=== PATIENT | male | born 1975 | race Caucasian/White ===

== ENCOUNTER 2018-05-12 13:48 | Inpatient (IN) | payer MEDICAID, OTHER ==
[2018-05-12 13:55] VITALS: BMI 27.1
--- NOTE | 2018-05-12 15:22 | C.PDOC ---
History Of Present Illness 43 y/o male with no pmx c/o swelling to left hand/thumb area with pus and bleeding since earlier this week. pt states it was small earlier in the week, and got worse after wearing a glove that rubbed on it, and putting aloe vera on it. pt has been taking keflex bid for since 05/08 with no improvement. no fever. Time Seen by Provider: 05/12/18 14:10 Chief Complaint (Nursing): Finger,Hand,&Wrist History Per: Patient History/Exam Limitations: no limitations Onset/Duration Of Symptoms: Days (6) Current Symptoms Are (Timing): Worse Quality: "Pain" Severity: Moderate Past Medical History Reviewed: Historical Data, Nursing Documentation, Vital Signs Vital Signs: Last Vital Signs Temp 98.4 F 05/12/18 13:55 Pulse 70 05/12/18 15:01 Resp 18 05/12/18 15:01 BP 136/86 05/12/18 15:01 Pulse Ox 97 05/12/18 15:01 - Medical History PMH: Kidney Stones, Chronic Kidney Disease Family History: States: Unknown Family Hx, Diabetes - Social History Hx Tobacco Use: No Hx Alcohol Use: Yes Hx Substance Use: No - Immunization History Hx Tetanus Toxoid Vaccination: No Hx Influenza Vaccination: No Hx Pneumococcal Vaccination: No Review Of Systems Constitutional: Negative for: Fever, Chills Cardiovascular: Negative for: Chest Pain Respiratory: Negative for: Cough Gastrointestinal: Negative for: Abdominal Pain Skin: Positive for: Lesions (to left hand) Neurological: Negative for: Weakness, Numbness Physical Exam - Physical Exam Appears: Non-toxic, No Acute Distress Skin: Warm, Dry, Other (6 cm x 2 cm mass extruding from left first metacarpal that is purulent and bloody , lesion with surrounding erythema, warmth, and swelling that extends to dorsum hand and thenar eminence. from of thumb. ) Head: Atraumatic, Normacephalic Extremity: Normal ROM, Tenderness (left hand), Capillary Refill (less than 2 seconds. ), Swelling Neurological/Psych: Oriented x3, Normal Speech, Normal Cognition ED Course And Treatment - Laboratory Results Result Diagrams: 05/12/18 15:51 05/12/18 15:51 O2 Sat by Pulse Oximetry: 97 Medical Decision Making Medical Decision Making: discussed with Dr Borker, will admit to her service for cellulitis. Dr Moreira made aware of consult, requests hand soaked, then wt to dry dressing applied. Disposition - Disposition Disposition: HOSPITALIZED Disposition Time: 17:15 Condition: GOOD - Clinical Impression Clinical Impression: Cellulitis of hand, left
[2018-05-12 15:56] LABS: BASO # 0.1 K/uL (0.0-0.2); BASO % 1.5 % (0.0-2.0); EOS # 0.2 K/uL (0.0-0.7); EOS % 2.3 % (0.0-4.0); HEMOGLOBIN 14.8 g/dL (12.0-18.0); LYMPH # 1.9 K/uL (1.0-4.3); LYMPH % 24.7 % (20.0-40.0); MEAN CELL VOLUME 88.2 fL (80.0-94.0); MEAN CORPUSCULAR HEMOGLOBIN 30.5 pg (27.0-31.0); MEAN CORPUSCULAR HGB CONC 34.6 g/dL (33.0-37.0); MEAN PLATELET VOLUME 7.7 fL (7.2-11.7); MONO # 0.5 K/uL (0.0-0.8); MONO % 6.9 % (0.0-10.0); NEUT # 4.9 K/uL (1.8-7.0); NEUT % 64.6 % (50.0-75.0); RBC 4.84 Mil/uL (4.40-5.90); RED CELL DISTRIBUTION WIDTH 12.6 % (11.5-14.5); WHITE BLOOD COUNT 7.6 K/uL (4.8-10.8)
[2018-05-12 16:00] LABS: URINE BILIRUBIN NEGATIVE (NEGATIVE); URINE BLOOD NEGATIVE (NEGATIVE); URINE CLARITY Clear (Clear); URINE COLOR Straw (YELLOW); URINE GLUCOSE (UA) NORMAL (Normal); URINE LEUKOCYTE ESTERASE NEG Leu/uL (Negative); URINE PROTEIN NEGATIVE (NEGATIVE); URINE UROBILINOGEN NORMAL mg/dL (0.2-1.0)
[2018-05-12] MEDS ORDERED: Clindamycin 600mg/50ml D5W 600 MG/50 ML VIAL IVPB SCH (16:00)
[2018-05-12] MEDS ORDERED: Clindamycin 600mg/50ml NS 600 MG/50 ML BAG IVPB SCH (16:00)
[2018-05-12 16:07] LABS: ALB/GLOB RATIO 1.3 (1.0-2.1); ALBUMIN 4.2 g/dL (3.5-5.0); ALT/SGPT 31 U/L (21-72); AST/SGOT 24 U/L (17-59); BLOOD UREA NITROGEN 14 mg/dL (9-20); CALCIUM 8.8 mg/dl (8.6-10.4); GFR NON-AFRICAN AMERICAN > 60
[2018-05-12 16:59] LABS: INR 1.2; PROTHROMBIN TIME 12.7 SECONDS (9.7-12.2)
[2018-05-12] MEDS ORDERED: Piperacillin/Tazobact 3.375 GM in Sodium Chloride 100 ML IVPB STA (17:05)
[2018-05-12] MEDS ORDERED: Vancomycin 1 gm/NS 200 ml 1 GM/200 ML BAG IVPB STA (17:22)
--- NOTE | 2018-05-12 18:07 | CP.PCM.HP ---
"History of Present Illness - History of Present Illness History of Present Illness: Mr. Garcia is a 43 year old male with a past medical history of nephrolithiasis who presents with complaints left hand/thumb swelling/pain with associated sanguinopurulent drainage. Patient states that his wound began as a bump on the evening of 05/07/18 and worsened. 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 Over the course of his wound he has attempted several modalities to treat his wound including sucking on it, poking wound with pin and trying to open it up, warm salt water, bottled water, and aloe-vera. He eventually went to a clinic and was prescribed Keflex 500 BID, which he has been taking since 05/08. Patient does admit to subjective fever on Monday which resolved with ibuprofen. ROS POSITIVES: As stated above NEGATIVES: Chills, headache, Chest pain, SOB, abdominal pain, nausea, vomiting, diarrhea, constipation, urinary symptoms. PMHx: Nephrolithiasis PSHx: Possible Colonoscopy 7-8 years ago Allergies: NKDA SocialHx: Works as a construction work, smokes Cigars social (hasn't smoked any in 3 months), Social EtOH Use Hos: [facility] FamHx: Father/Mother - HTN, Diabetes Meds: PRN Motrin PMD: None Present on Admission - Present on Admission Any Indicators Present on Admission: No Review of Systems - Review of Systems All systems: reviewed and no additional remarkable complaints except (As per HPI) Review of Systems: As per HPI Past Patient History - Past Social History Smoking Status: Never Smoked - RENAL Hx Chronic Kidney Disease: Yes Hx Kidney Stones: Yes - PSYCHIATRIC Hx Substance Use: No - SURGICAL HISTORY Hx Surgeries: No - ANESTHESIA Hx Anesthesia: No Hx Anesthesia Reactions: No Hx Malignant Hyperthermia: No Meds Allergies/Adverse Reactions: Allergies Allergy/AdvReac Type Severity Reaction Status Date / Time No Known Allergies Allergy Verified 05/12/18 13:53 Physical Exam - Constitutional Appears: Well, Non-toxic, No Acute Distress - Head Exam Head Exam: ATRAUMATIC, NORMAL INSPECTION, NORMOCEPHALIC - Eye Exam Eye Exam: EOMI, Normal appearance. absent: Scleral icterus - ENT Exam ENT Exam: Mucous Membranes Moist - Neck Exam Neck exam: Positive for: Normal Inspection. Negative for: Lymphadenopathy - Respiratory Exam Respiratory Exam: Clear to Auscultation Bilateral, NORMAL BREATHING PATTERN. absent: Rales, Rhonchi, Wheezes - Cardiovascular Exam Cardiovascular Exam: RRR, +S1, +S2 - GI/Abdominal Exam GI & Abdominal Exam: Normal Bowel Sounds, Soft. absent: Tenderness - Extremities Exam Extremities exam: Positive for: normal capillary refill, pedal pulses present. Negative for: pedal edema Additional comments: Left Hand/Thumb. Swollen, Erythematous with sanguinopurulent drainage. Tender to palpation. Irregular border NO axillary lymphadenopathy Left axilla with two papular, erythematous masses about .5inch in diameter each. Tender to palpation, fluctuant. - Back Exam Back exam: NORMAL INSPECTION - Neurological Exam Neurological exam: Alert, Oriented x3 - Psychiatric Exam Psychiatric exam: Normal Affect, Normal Mood - Skin Skin Exam: Warm Results - Vital Signs Recent Vital Signs: Last Vital Signs Temp 98.4 F 05/12/18 13:55 Pulse 70 05/12/18 15:01 Resp 18 05/12/18 15:01 BP 136/86 05/12/18 15:01 Pulse Ox 97 05/12/18 15:48 - Labs Result Diagrams: 05/12/18 15:51 05/12/18 15:51 Labs: Laboratory Results - last 24 hr 05/12/18 05/12/18 05/12/18 15:51 15:51 15:51 WBC 7.6 RBC 4.84 Hgb 14.8 Hct 42.7 MCV 88.2 MCH 30.5 MCHC 34.6 RDW 12.6 Plt Count 276 MPV 7.7 Neut % (Auto) 64.6 Lymph % (Auto) 24.7 [place] % (Auto) 6.9 Eos % (Auto) 2.3 Baso % (Auto) 1.5 Neut # (Auto) 4.9 Lymph # (Auto) 1.9 [place] # (Auto) 0.5 Eos # (Auto) 0.2 Baso # (Auto) 0.1 PT INR APTT Sodium 139 Potassium 3.6 Chloride 101 Carbon Dioxide 30 Anion Gap 12 BUN 14 Creatinine 0.8 Est GFR ( Amer) > 60 Est GFR (Non-Af Amer) > 60 Random Glucose 91 Calcium 8.8 Total Bilirubin 0.6 AST 24 ALT 31 Alkaline Phosphatase 99 Total Protein 7.5 Albumin 4.2 Globulin 3.2 Albumin/Globulin Ratio 1.3 Urine Color Straw Urine Clarity Clear Urine pH 6.0 Ur Specific [place] 1.008 Urine Protein Negative Urine Glucose (UA) Normal Urine Ketones Negative Urine Blood Negative Urine Nitrate Negative Urine Bilirubin Negative Urine Urobilinogen Normal Ur Leukocyte Esterase Neg Urine WBC (Auto) 1 Urine RBC (Auto) 1 05/12/18 16:43 WBC RBC Hgb Hct MCV MCH MCHC RDW Plt Count MPV Neut % (Auto) Lymph % (Auto) [place] % (Auto) Eos % (Auto) Baso % (Auto) Neut # (Auto) Lymph # (Auto) [place] # (Auto) Eos # (Auto) Baso # (Auto) PT 12.7 H INR 1.2 APTT 33 Sodium Potassium Chloride Carbon Dioxide Anion Gap BUN Creatinine Est GFR ( Amer) Est GFR (Non-Af Amer) Random Glucose Calcium Total Bilirubin AST ALT Alkaline Phosphatase Total Protein Albumin Globulin Albumin/Globulin Ratio Urine Color Urine Clarity Urine pH Ur Specific [place] Urine Protein Urine Glucose (UA) Urine Ketones Urine Blood Urine Nitrate Urine Bilirubin Urine Urobilinogen Ur Leukocyte Esterase Urine WBC (Auto) Urine RBC (Auto) Assessment & Plan - Assessment and Plan (Free Text) Assessment: 43 year old male with PMHx of nephrolithiasis admitted for evaluation and treatment of left hand/thumb cellulitis. Plan: Left Hand/Thumb Cellulitis No fever/Leukocytosis Left Hand X-ray (Admission): PENDING read Left Hand CT (05/12/18): PENDING Hand Surgery Consulted (Dr. Persaud) ID Consulted (Dr. Bello) ED: Clindamycin, Zosyn, Vancomycin, -Blood Cultures | Wound Culture -Hemoglobin A1C & HIV 1&2 -NPO Diet incase of surgery -Preoperative CXR and EKG Meds: Vancomycin 1 gram Daily IV Zosyn 3.375 Q6H IV Tylenol NS @ 125mls/HR Tdap IM ONCE Proph NPO NO pharmocological DVT proph in case of surgery SCD's GI Proph Not Indicated Patient seen and discussed with Attending Lizzie Crooks, PGY-2"
[2018-05-12] MEDS ORDERED: Sodium Chloride 0.9% 1,000 ML IV SCH (18:15)
[2018-05-12] MEDS ORDERED: Tetanus/Diphtheria Toxoids 0.5 ml Syringe IM ONE (18:20)
[2018-05-12] MEDS: Sodium Chloride 0.9% 1,000 ML IV SCH (19:05)
[2018-05-12] MEDS ORDERED: Iohexol 350mg/ml 100 ML ONE (19:24)
[2018-05-12] MEDS: Piperacill/Tazo 3.375gm in Dex 3.375 GM/50 ML BAG IVPB SCH (23:05)
[2018-05-13 01:31] VITALS: RESP 20
[2018-05-13] MEDS: Sodium Chloride 0.9% 1,000 ML IV SCH ×3 (03:02→14:36)
[2018-05-13] MEDS: Piperacill/Tazo 3.375gm in Dex 3.375 GM/50 ML BAG IVPB SCH ×4 (04:36→22:22)
[2018-05-13 08:26] LABS: BASO # 0.1 K/uL (0.0-0.2); BASO % 1.2 % (0.0-2.0); EOS # 0.3 K/uL (0.0-0.7); EOS % 3.2 % (0.0-4.0); HEMOGLOBIN 14.5 g/dL (12.0-18.0); LYMPH # 1.8 K/uL (1.0-4.3); LYMPH % 22.1 % (20.0-40.0); MEAN CELL VOLUME 88.7 fL (80.0-94.0); MEAN CORPUSCULAR HEMOGLOBIN 31.1 pg (27.0-31.0); MEAN CORPUSCULAR HGB CONC 35.1 g/dL (33.0-37.0); MEAN PLATELET VOLUME 8.1 fL (7.2-11.7); MONO # 0.6 K/uL (0.0-0.8); MONO % 7.3 % (0.0-10.0); NEUT # 5.3 K/uL (1.8-7.0); NEUT % 66.2 % (50.0-75.0); RBC 4.66 Mil/uL (4.40-5.90); RED CELL DISTRIBUTION WIDTH 12.6 % (11.5-14.5)
[2018-05-13 08:40] LABS: ALB/GLOB RATIO 1.2 (1.0-2.1); ALBUMIN 3.7 g/dL (3.5-5.0); ALT/SGPT 28 U/L (21-72); AST/SGOT 23 U/L (17-59); BLOOD UREA NITROGEN 14 mg/dL (9-20); CALCIUM 8.7 mg/dl (8.6-10.4); GFR NON-AFRICAN AMERICAN > 60
[2018-05-13] MEDS ORDERED: Pneumococcal 23-Valent Vaccine IM ONE (10:00)
[2018-05-13] MEDS: Vancomycin 1 gm/NS 200 ml 1 GM/200 ML BAG IVPB SCH (10:45)
--- NOTE | 2018-05-13 11:44 | CT ---
Date of service: 05/12/2018 PROCEDURE: CT of the left hand HISTORY: Left Hand Cellulitis COMPARISON: None available. TECHNIQUE: Contiguous axial images of the le left hand hip were obtained following intravenous injection of approximately 100 cc Visipaque 320. Coronal and sagittal reformats were generated. Radiation dose: Total exam DLP = 279.11 mGy-cm. This CT exam was performed using one or more of the following dose reduction techniques: Automated exposure control, adjustment of the mA and/or kV according to patient size, and/or use of iterative reconstruction technique. FINDINGS: BONES: The current study reveals no evidence of acute displaced fracture nor dislocation. The osseous structures appear intact. No obvious cortical destructive changes seen at this time to suggest osteomyelitis however consider follow-up MRI if early osteomyelitis suspected clinically as this cannot be completely excluded based on the current study. No evidence of significant osteoarthritis. SOFT TISSUES: There is a long somewhat rectangular/elliptical shaped hypodense fluid collection within the lateral (radial aspect) soft tissues of the left hand extending from the distal aspect of the 1st metacarpal proximally to the level of the triquetrum. This collection measures approximately 3.8 x 1.39 x 0.74 cm. Collection extends to the lateral volar skin surface with possible draining site best seen on axial series 3 image number 128 through 132. There is surrounding infiltration changes in the adjacent subcutaneous tissues and musculature consistent with cellulitis.. No evidence of subcutaneous emphysema IMPRESSION: Findings are consistent with a small elliptical shaped abscess collection with surrounding is infiltration changes consistent with cellulitis in the soft tissues of the lateral hand (radial aspect) at the level of the 1st metacarpal extending from distal metacarpal proximally to the level of the triquetrum.. No evidence of subcutaneous emphysema. No definitive bony destructive changes suggest osteomyelitis at this time however early osteomyelitis not excluded. Follow-up MRI may be prudent for further evaluation These findings are concordant with preliminary radiology reading.
--- NOTE | 2018-05-13 13:46 | RAD ---
Date of service: 05/12/2018 HISTORY: Pre-Op COMPARISON: No prior TECHNIQUE: Chest PA and lateral FINDINGS: LUNGS: Poor inspiration with low lung volumes, crowded bronchovascular markings and mild bibasilar atelectasis. PLEURA: No significant pleural effusion identified. No pneumothorax apparent. CARDIOVASCULAR: No aortic atherosclerotic calcification present. Normal cardiac size. No pulmonary vascular congestion. OSSEOUS STRUCTURES: No significant abnormalities. VISUALIZED UPPER ABDOMEN: Normal. OTHER FINDINGS: None. IMPRESSION: Poor inspiration with low lung volumes, crowded bronchovascular markings and mild bibasilar atelectasis. .
--- NOTE | 2018-05-13 13:58 | CP.PCM.PN ---
<Lizzie Crooks - Last Filed: 05/13/18 13:50> Subjective - Date & Time of Evaluation Date of Evaluation: 05/13/18 Time of Evaluation: 10:40 - Subjective Subjective: Patient seen and examined at bedside. No overnight events reported. Patient denies any fever, chills, chest pain, SOB, abdominal pain, n/v/d, constipation, or any urinary symptoms. Hand pain has decreased. Objective - Vital Signs/Intake and Output Vital Signs (last 24 hours): Temp Pulse Resp BP Pulse Ox 98.9 F 58 L 20 117/77 95 05/13/18 08:00 05/13/18 08:00 05/13/18 08:00 05/13/18 08:00 05/13/18 08:00 Intake and Output: 05/13/18 05/13/18 06:59 18:59 Intake Total 1000 Balance 1000 - Medications Medications: Current Medications Acetaminophen (Tylenol 325mg Tab) 650 mg PO Q6 PRN PRN Reason: Pain or Fever Vancomycin/Sodium Chloride (Vancomycin 1 Gm/Ns 200 Ml) 1 gm in 200 mls @ 166.7 mls/hr IVPB Q24H GILBERTO; Protocol Stop: 05/18/18 10:01 Last Admin: 05/13/18 10:45 Dose: 166.7 mls/hr Piperacillin Sod/Tazobactam Sod (Zosyn 3.375 Gm Iv Premix) 3.375 gm in 50 mls @ 100 mls/hr IVPB Q6H GILBERTO; Protocol Last Admin: 05/13/18 10:46 Dose: 100 mls/hr Sodium Chloride (Sodium Chloride 0.9%) 1,000 mls @ 125 mls/hr IV .Q8H GILBERTO Last Admin: 05/13/18 03:02 Dose: 125 mls/hr - Labs Labs: 05/13/18 08:17 05/13/18 08:17 PT 12.7 SECONDS (9.7-12.2) H 05/12/18 16:43 INR 1.2 05/12/18 16:43 APTT 33 SECONDS (21-34) 05/12/18 16:43 - Additional Findings Additional findings: - Constitutional Appears: Well, Non-toxic, No Acute Distress - Head Exam Head Exam: ATRAUMATIC, NORMAL INSPECTION, NORMOCEPHALIC - Eye Exam Eye Exam: EOMI, Normal appearance. absent: Scleral icterus - ENT Exam ENT Exam: Mucous Membranes Moist - Neck Exam Neck exam: Positive for: Normal Inspection. Negative for: Lymphadenopathy - Respiratory Exam Respiratory Exam: Clear to Auscultation Bilateral, NORMAL BREATHING PATTERN. absent: Rales, Rhonchi, Wheezes - Cardiovascular Exam Cardiovascular Exam: RRR, +S1, +S2 - GI/Abdominal Exam GI & Abdominal Exam: Normal Bowel Sounds, Soft. absent: Tenderness - Extremities Exam Extremities exam: Positive for: normal capillary refill, pedal pulses present. Negative for: pedal edema Additional comments: Left Hand/Thumb. Swollen, Erythematous with sanguinopurulent drainage. Tender to palpation. Irregular border NO axillary lymphadenopathy Left axilla with two papular, erythematous masses about .5inch in diameter each. Tender to palpation, fluctuant. - Back Exam Back exam: NORMAL INSPECTION - Neurological Exam Neurological exam: Alert, Oriented x3 - Psychiatric Exam Psychiatric exam: Normal Affect, Normal Mood - Skin Skin Exam: Warm Assessment and Plan - Assessment and Plan (Free Text) Assessment: 43 year old male with PMHx of nephrolithiasis admitted for evaluation and treatment of left hand/thumb cellulitis. Plan: Left Hand/Thumb Cellulitis No fever/Leukocytosis Left Hand X-ray (Admission): PENDING Official Read, No fractures, dislocations, or evidence of osteomyelitis noted. Left Hand CT (05/12/18): Findings are consistent with a small elliptical shaped abscess collection with surrounding is infiltration changes consistent with cellulitis in the soft tissues of the lateral hand (radial aspect) at the level of the 1st metacarpal extending from distal metacarpal proximally to the level of the triquetrum.. No evidence of subcutaneous emphysema. No definitive bony destructive changes suggest osteomyelitis at this time however early osteomyelitis not excluded. Follow-up MRI may be prudent for further evaluation Hand Surgery Consulted (Dr. Persaud), F/U. ---Wet to Dry Dressing ID Consulted (Dr. Bello), F/U ED: Clindamycin, Zosyn, Vancomycin, Wound Culture (05/12/18): POSITIVE for Gram (+) Gocci Blood Cultures: PENDING Meds: Vancomycin 1 gram Daily IV Zosyn 3.375 Q6H IV Tylenol NS @ 75mls/HR Tdap IM Given Once Proph NO pharmocological DVT proph in case of surgery SCD's GI Proph Not Indicated <Bashir Bautista - Last Filed: 05/13/18 14:35> Objective - Vital Signs/Intake and Output Vital Signs (last 24 hours): Temp Pulse Resp BP Pulse Ox 98.9 F 58 L 20 117/77 95 05/13/18 08:00 05/13/18 08:00 05/13/18 08:00 05/13/18 08:00 05/13/18 08:00 Intake and Output: 05/13/18 05/13/18 06:59 18:59 Intake Total 1000 Balance 1000 - Medications Medications: Current Medications Acetaminophen (Tylenol 325mg Tab) 650 mg PO Q6 PRN PRN Reason: Pain or Fever Vancomycin/Sodium Chloride (Vancomycin 1 Gm/Ns 200 Ml) 1 gm in 200 mls @ 166.7 mls/hr IVPB Q24H GILBERTO; Protocol Stop: 05/18/18 10:01 Last Admin: 05/13/18 10:45 Dose: 166.7 mls/hr Piperacillin Sod/Tazobactam Sod (Zosyn 3.375 Gm Iv Premix) 3.375 gm in 50 mls @ 100 mls/hr IVPB Q6H GILBERTO; Protocol Last Admin: 05/13/18 10:46 Dose: 100 mls/hr Sodium Chloride (Sodium Chloride 0.9%) 1,000 mls @ 75 mls/hr IV .[id number] GILBERTO - Labs Labs: 05/13/18 08:17 05/13/18 08:17 PT 12.7 SECONDS (9.7-12.2) H 05/12/18 16:43 INR 1.2 05/12/18 16:43 APTT 33 SECONDS (21-34) 05/12/18 16:43 Attending/Attestation - Attestation I have personally seen and examined this patient.: Yes I have fully participated in the care of the patient.: Yes I have reviewed all pertinent clinical information, including history, physical exam and plan: Yes Notes (Text): Patient seen and examined, agree with above improved pain, continue with supportive care and broad spectrum Abx until blood cx reports available will likely need I&D
--- NOTE | 2018-05-13 14:28 | RAD ---
PROCEDURE: Left Hand Radiographs. HISTORY: mass on thumb COMPARISON: None. FINDINGS: BONES: No evidence of acute displaced fracture nor dislocation. Osseous structures appear intact. No definitive cortical destructive changes.. JOINTS: Normal. No osteoarthritic changes. SOFT TISSUES: There is localized enlarged heterogeneous appearance of the soft tissues adjacent to the radial margin of the 1st metacarpal (with presumed involvement of the thenar eminence) and extending to the level of the triquetrum. Findings may represent a cellulitis and possible abscess. Follow-up additional imaging such as CT scan with contrast recommended. OTHER FINDINGS: None. IMPRESSION: There is localized enlarged heterogeneous appearance of the soft tissues adjacent to the radial margin of the 1st metacarpal (with presumed involvement of the thenar eminence) and extending to the level of the triquetrum. Findings may represent a cellulitis and possible abscess. Follow-up additional imaging such as CT scan with contrast recommended.
--- NOTE | 2018-05-13 17:35 | CP.PCM.CON ---
History of Present Illness - History of Present Illness History of Present Illness: 43 year old male presents with complaints left hand/thumb swelling/pain Says his wound began as a bump on the evening of 05/07/18 and worsened. He eventually went to a clinic and was prescribed Keflex 500 BID, which he has been taking since 05/08. Pain and swelling persisted PMHx: Nephrolithiasis PSHx: Possible Colonoscopy 7-8 years ago Allergies: NKDA SocialHx: Works as a construction work, smokes Cigars social (hasn't smoked any in 3 months), Social EtOH Use FamHx: Father/Mother - HTN, Diabetes Review of Systems - Review of Systems All systems: reviewed and no additional remarkable complaints except - Constitutional Constitutional: As Per HPI - EENT Eyes: absent: As Per HPI, Blind Spots, Blurred Vision, Change in Vision, Decreased Night Vision, Diplopia, Discharge, Dry Eye, Exophthalmos, Floaters, Irritation, Itchy Eyes, Loss of Peripheral Vision, Pain, Photophobia, Requires Corrective Lenses, Sees Flashes, Spots in Vision, Tunnel Vision, Other Visual Disturbances, Loss of Vision, Other Ears: absent: As Per HPI, Decreased Hearing, Ear Discharge, Ear Pain, Tinnitus, Abnormal Hearing, Disequilibrium, Dizziness, Other Nose/Mouth/Throat: absent: As Per HPI, Epistaxis, Nasal Congestion, Nasal Discharge, Nasal Obstruction, Nasal Trauma, Nose Pain, Post Nasal Drip, Sinus Pain, Sinus Pressure, Bleeding Gums, Change in Voice, Dental Pain, Dry Mouth, Dysphagia, Halitosis, Hoarsness, Lip Swelling, Mouth Lesions, Mouth Pain, Odynophagia, Sore Throat, Throat Swelling, Tongue Swelling, Facial Pain, Neck Pain, Neck Mass, Other - Cardiovascular Cardiovascular: absent: As Per HPI, Acrocyanosis, Chest Pain, Chest Pain at Rest, Chest Pain with Activity, Claudication, Diaphoresis, Dyspnea, Dyspnea on Exertion, Edema, Irregular Heart Rhythm, Pain Radiating to Arm/Neck/Jaw, Leg Edema, Leg Ulcers, Lightheadedness, Orthopnea, Palpitations, Paroxysmal Noctur nal Dyspnea, Pedal Edema, Radiating Pain, Rapid Heart Rate, Slow Heart Rate, Syncope, Other - Respiratory Respiratory: absent: As Per HPI, Cough, Dyspnea, Hemoptysis, Dyspnea on Exertion, Wheezing, Snoring, Stridor, Pain on Inspiration, Chest Congestion, Excessive Mucous Production, Change in Mucous Color, Pain with Coughing, Other - Gastrointestinal Gastrointestinal: absent: As Per HPI, Abdominal Pain, Belching, Bloating, Change in Bowel Habits, Change in Stool Character, Coffee Ground Emesis, Constipation, Cramping, Diarrhea, Dyspepsia, Dysphagia, Early Satiety, Excessive Flatus, Fecal Incontinence, Heartburn, Hematemesis, Hematochezia, Loose Stools, Melena, Nausea, Odynophagia, Temesmus, Vomiting, Other - Genitourinary Genitourinary: absent: As Per HPI, Change in Urinary Stream, Difficulty Urinating, Dysuria, Flank Pain, Hematuria, Pyuria, Nocturia, Urinary Incontinen ce, Urinary Frequency, Urinary Hesitance, Urinary Urgency, Voiding Freq/Small Amts, Freq UTI, Hx Renal/Bladder Calculi, Hx /Renal Surgery, Bladder Distension, Other - Musculoskeletal Musculoskeletal: As Per HPI - Integumentary Integumentary: As Per HPI, Skin Pain, Wounds - Neurological Neurological: absent: As Per HPI, Abnormal Gait, Abnormal Hearing, Abnormal Movements, Abnormal Speech, Behavioral Changes, Burning Sensations, Confusion, Convulsions, Disequilibrium, Dizziness, Numbness, Focal Weakness, Frequent Falls, Headaches, Lack of Coordination, Loss of Vision, Memory Loss, Paresthesias, Radicular Pain, Restless Legs, Sensory Deficit, Syncope, Tingling, Tremor, Vertigo, Weakness, Other Visual Disturbances, Other - Psychiatric Psychiatric: absent: As Per HPI, Abnormal Sleep Pattern, Anhedonia, Anxiety, Auditory Hallucinations, Behavioral Changes, Change in Appetite, Change in Libido, Confusion, Depression, Difficulty Concentrating, Hallucinations, Homicidal Ideation, Hopelessness, Irritability, Memory Loss, Mood Swings, Panic Attacks, Paranoia, Suicidal Ideation, Visual Hallucinations, Tactile Hallucinations, Other - Endocrine Endocrine: absent: As Per HPI, Change in Body Appearance, Change in Libido, Cold Intolorance, Deepening of Voice, Excessive Sweating, Fatigue, Flushing, Heat Intolorance, Increase in Ring/Shoe/Hat Size, Palpitations, Polydipsia, Polyphagia, Polyuria, Other - Hematologic/Lymphatic Hematologic: absent: As Per HPI, Easy Bleeding, Easy Bruising, Lymphadenopathy, Other Past Patient History - Past Social History Smoking Status: Never Smoked - RENAL Hx Chronic Kidney Disease: Yes Hx Kidney Stones: Yes - MUSCULOSKELETAL/RHEUMATOLOGICAL Hx Falls: No - PSYCHIATRIC Hx Substance Use: No - SURGICAL HISTORY Hx Surgeries: No - ANESTHESIA Hx Anesthesia: No Hx Anesthesia Reactions: No Hx Malignant Hyperthermia: No Meds Allergies/Adverse Reactions: Allergies Allergy/AdvReac Type Severity Reaction Status Date / Time No Known Allergies Allergy Verified 05/12/18 13:53 - Medications Medications: Current Medications Acetaminophen (Tylenol 325mg Tab) 650 mg PO Q6 PRN PRN Reason: Pain or Fever Vancomycin/Sodium Chloride (Vancomycin 1 Gm/Ns 200 Ml) 1 gm in 200 mls @ 166.7 mls/hr IVPB Q24H [facility]; Protocol Stop: 05/18/18 10:01 Last Admin: 05/13/18 10:45 Dose: 166.7 mls/hr Piperacillin Sod/Tazobactam Sod (Zosyn 3.375 Gm Iv Premix) 3.375 gm in 50 mls @ 100 mls/hr IVPB Q6H [facility]; Protocol Last Admin: 05/13/18 10:46 Dose: 100 mls/hr Sodium Chloride (Sodium Chloride 0.9%) 1,000 mls @ 75 mls/hr IV .[id number] [facility] Last Admin: 05/13/18 14:36 Dose: 75 mls/hr Physical Exam - Constitutional Appears: Non-toxic, Chronically Ill - Head Exam Head Exam: NORMOCEPHALIC - Eye Exam Eye Exam: absent: Scleral icterus - ENT Exam ENT Exam: Mucous Membranes Dry - Neck Exam Neck exam: Negative for: Lymphadenopathy - Respiratory Exam Respiratory Exam: Decreased Breath Sounds - Cardiovascular Exam Cardiovascular Exam: REGULAR RHYTHM - GI/Abdominal Exam GI & Abdominal Exam: Diminished Bowel Sounds, Soft. absent: Tenderness - Rectal Exam Rectal Exam: Deferred - Exam Exam: NORMAL INSPECTION - Extremities Exam Extremities exam: Negative for: pedal edema - Back Exam Back exam: absent: CVA tenderness (L), CVA tenderness (R) - Neurological Exam Neurological exam: Alert, CN II-XII Intact, Oriented x3, Reflexes Normal - Psychiatric Exam Psychiatric exam: Normal Mood - Skin Additional comments: + erythema swelling and pus from left hand pulses and neurologic exam wnl Results - Vital Signs Recent Vital Signs: Last Vital Signs Temp 99.3 F 05/13/18 16:00 Pulse 68 05/13/18 16:00 Resp 20 05/13/18 16:00 BP 121/79 05/13/18 16:00 Pulse Ox 96 05/13/18 16:00 - Labs Result Diagrams: 05/13/18 08:17 05/13/18 08:17 Labs: Laboratory Results - last 24 hr 05/12/18 05/13/18 05/13/18 20:03 08:17 08:17 WBC 8.0 RBC 4.66 Hgb 14.5 Hct 41.4 MCV 88.7 MCH 31.1 H MCHC 35.1 RDW 12.6 Plt Count 261 MPV 8.1 Neut % (Auto) 66.2 Lymph % (Auto) 22.1 [place] % (Auto) 7.3 Eos % (Auto) 3.2 Baso % (Auto) 1.2 Neut # (Auto) 5.3 Lymph # (Auto) 1.8 [place] # (Auto) 0.6 Eos # (Auto) 0.3 Baso # (Auto) 0.1 Sodium 140 Potassium 3.6 Chloride 103 Carbon Dioxide 28 Anion Gap 12 BUN 14 Creatinine 0.9 Est GFR ( Amer) > 60 Est GFR (Non-Af Amer) > 60 Random Glucose 86 Hemoglobin A1c 5.6 Calcium 8.7 Phosphorus 3.9 Magnesium 2.1 Total Bilirubin 1.1 AST 23 ALT 28 Alkaline Phosphatase 74 Total Protein 6.8 Albumin 3.7 Globulin 3.1 Albumin/Globulin Ratio 1.2 Assessment & Plan (1) Cellulitis of hand, left Status: Acute - Assessment and Plan (Free Text) Assessment: abscess left hand with cellulitis- draining consider I and D if swelling persists IV antibiotics await cultures wound care tetanus toxoid if not given
[2018-05-14] MEDS: Sodium Chloride 0.9% 1,000 ML IV SCH ×3 (03:16→22:20)
[2018-05-14] MEDS: Piperacill/Tazo 3.375gm in Dex 3.375 GM/50 ML BAG IVPB SCH ×4 (05:05→22:13)
[2018-05-14 07:17] LABS: BASO # 0.1 K/uL (0.0-0.2); EOS # 0.3 K/uL (0.0-0.7); EOS % 3.4 % (0.0-4.0); HEMOGLOBIN 14.5 g/dL (12.0-18.0); LYMPH # 1.9 K/uL (1.0-4.3); LYMPH % 23.3 % (20.0-40.0); MEAN CELL VOLUME 88.9 fL (80.0-94.0); MEAN CORPUSCULAR HEMOGLOBIN 30.9 pg (27.0-31.0); MEAN CORPUSCULAR HGB CONC 34.8 g/dL (33.0-37.0); MONO # 0.7 K/uL (0.0-0.8); MONO % 8.1 % (0.0-10.0); NEUT # 5.3 K/uL (1.8-7.0); NEUT % 64.2 % (50.0-75.0); NRBC % 0.1 % (0.0-2.0); RBC 4.7 Mil/uL (4.40-5.90); RED CELL DISTRIBUTION WIDTH 12.5 % (11.5-14.5); WHITE BLOOD COUNT 8.3 K/uL (4.8-10.8)
--- NOTE | 2018-05-14 07:23 | CP.PCM.PN ---
Subjective - Date & Time of Evaluation Date of Evaluation: 05/14/18 Time of Evaluation: 07:23 - Subjective Subjective: Progress note for Hospitalist service Patient was seen and evaluated at bedside. He states that his pain is currently controlled at this time. He denies fevers, chills, chest pain, shortness of breath, abdominal pain, nausea, vomiting, diarrhea, dysuria, leg swelling. Objective - Vital Signs/Intake and Output Vital Signs (last 24 hours): Temp Pulse Resp BP Pulse Ox 98.9 F 77 20 129/76 95 05/14/18 04:57 05/14/18 00:00 05/14/18 00:00 05/14/18 00:00 05/14/18 00:00 Intake and Output: 05/14/18 05/14/18 06:59 18:59 Intake Total 1300 Balance 1300 - Medications Medications: Current Medications Acetaminophen (Tylenol 325mg Tab) 650 mg PO Q6 PRN PRN Reason: Pain or Fever Vancomycin/Sodium Chloride (Vancomycin 1 Gm/Ns 200 Ml) 1 gm in 200 mls @ 166.7 mls/hr IVPB Q24H [facility]; Protocol Stop: 05/18/18 10:01 Last Admin: 05/13/18 10:45 Dose: 166.7 mls/hr Piperacillin Sod/Tazobactam Sod (Zosyn 3.375 Gm Iv Premix) 3.375 gm in 50 mls @ 100 mls/hr IVPB Q6H [facility]; Protocol Last Admin: 05/14/18 05:05 Dose: 100 mls/hr Sodium Chloride (Sodium Chloride 0.9%) 1,000 mls @ 75 mls/hr IV .[id number] [facility] Last Admin: 05/14/18 03:16 Dose: 75 mls/hr - Labs Labs: 05/14/18 06:43 05/13/18 08:17 PT 12.7 SECONDS (9.7-12.2) H 05/12/18 16:43 INR 1.2 05/12/18 16:43 APTT 33 SECONDS (21-34) 05/12/18 16:43 - Constitutional Appears: Well, No Acute Distress - Head Exam Head Exam: ATRAUMATIC, NORMOCEPHALIC - Eye Exam Eye Exam: EOMI - ENT Exam ENT Exam: Mucous Membranes Moist - Neck Exam Neck Exam: Full ROM - Respiratory Exam Respiratory Exam: Clear to Ausculation Bilateral. absent: Rales, Rhonchi, Wheezes, Respiratory Distress, Stridor - Cardiovascular Exam Cardiovascular Exam: REGULAR RHYTHM, +S1, +S2. absent: Gallop, Rubs, Murmur - GI/Abdominal Exam GI & Abdominal Exam: Soft, Normal Bowel Sounds. absent: Distended, Firm, Guarding, Rigid, Tenderness - Extremities Exam Extremities Exam: Normal Capillary Refill. absent: Calf Tenderness, Pedal Edema Additional comments: Left hand: Edema with purulent drainage with tenderness along radial aspect of left thumb at the level of metacarpal. Sensation of digits on left hand intact. Able to make a fist with left hand. Capillary refill <2 seconds. Left axilla: small papular erythematous fluctuant region that are mildly tender to palpation. No axillary lymphadenopathy. - Neurological Exam Neurological Exam: Alert, Awake, Oriented x3 - Psychiatric Exam Psychiatric exam: Normal Affect, Normal Mood - Skin Skin Exam: Dry, Intact, Warm Assessment and Plan - Assessment and Plan (Free Text) Plan: Assessment: 43 year old male with past medical history of nephrolithiasis admitted for evaluation and treatment of left hand/thumb cellulitis. Plan: Left Hand/Thumb Cellulitis - Remains afebrile - White count 8.3 - Left Hand X-ray: There is localized enlarged heterogeneous appearance of the soft tissues adjacent to the radial margin of the 1st metacarpal with presumed involvement of the thenar eminence and extending to the level of the triquetrum. Findings may represent a cellulitis and possible abscess. Follow up additional imaging such as a CT with IV contrast is recommended. - Left Hand CT (05/12/18): Findings are consistent with a small elliptical shaped abscess collection with surrounding is infiltration changes consistent with cellulitis in the soft tissues of the lateral hand (radial aspect) at the level of the 1st metacarpal extending from distal metacarpal proximally to the level of the triquetrum.. No evidence of subcutaneous emphysema. No definitive bony destructive changes suggest osteomyelitis at this time however early osteo myelitis not excluded. Follow-up MRI may be prudent for further evaluation - f/u left hand MRI results - HIV negative - Hand Surgery Consulted (Dr. Persaud), help appreciated - ID Consulted (Dr. Bello), help appreciated - In ED patient received Clindamycin, Zosyn, Vancomycin - Wound Culture (05/12/18): positive for MRSA - Blood Cultures no growth x48 hours - Meds: Vancomycin 1 gram IV Q12 Zosyn 3.375 Q6H IV Tylenol 650mg PO Q6 PRN Tdap IM Given Once Proph NO pharmocological DVT proph in case of surgery SCD's GI Proph Not Indicated Case discussed with Dr. Shreya Torres, PGY1
[2018-05-14 07:43] LABS: ALB/GLOB RATIO 1.2 (1.0-2.1); ALBUMIN 3.7 g/dL (3.5-5.0); ALT/SGPT 27 U/L (21-72); AST/SGOT 24 U/L (17-59); BLOOD UREA NITROGEN 14 mg/dL (9-20); CALCIUM 8.5 mg/dl (8.6-10.4); GFR NON-AFRICAN AMERICAN > 60
[2018-05-14] MEDS: Vancomycin 1 gm/NS 200 ml 1 GM/200 ML BAG IVPB SCH ×3 (10:16→23:32)
--- NOTE | 2018-05-14 11:35 | CP.PCM.PN ---
Subjective - Date & Time of Evaluation Date of Evaluation: 05/14/18 Time of Evaluation: 08:00 - Subjective Subjective: wound + for MRSA consider MRI cont Vanco for now surgical eval Objective - Vital Signs/Intake and Output Vital Signs (last 24 hours): Temp Pulse Resp BP Pulse Ox 98.5 F 73 20 131/88 95 05/14/18 07:00 05/14/18 07:00 05/14/18 07:00 05/14/18 07:00 05/14/18 07:00 Intake and Output: 05/14/18 05/14/18 06:59 18:59 Intake Total 1300 Balance 1300 - Medications Medications: Current Medications Acetaminophen (Tylenol 325mg Tab) 650 mg PO Q6 PRN PRN Reason: Pain or Fever Vancomycin/Sodium Chloride (Vancomycin 1 Gm/Ns 200 Ml) 1 gm in 200 mls @ 166.7 mls/hr IVPB Q24H [facility]; Protocol Stop: 05/18/18 10:01 Last Admin: 05/14/18 10:16 Dose: 166.7 mls/hr Piperacillin Sod/Tazobactam Sod (Zosyn 3.375 Gm Iv Premix) 3.375 gm in 50 mls @ 100 mls/hr IVPB Q6H [facility]; Protocol Last Admin: 05/14/18 05:05 Dose: 100 mls/hr Sodium Chloride (Sodium Chloride 0.9%) 1,000 mls @ 75 mls/hr IV .[id number] [facility] Last Admin: 05/14/18 03:16 Dose: 75 mls/hr - Labs Labs: 05/14/18 06:43 05/14/18 06:43 PT 12.7 SECONDS (9.7-12.2) H 05/12/18 16:43 INR 1.2 05/12/18 16:43 APTT 33 SECONDS (21-34) 05/12/18 16:43 Assessment and Plan (1) Cellulitis of hand, left Status: Acute
--- NOTE | 2018-05-14 17:25 | CP.PCM.CON ---
History of Present Illness - History of Present Illness History of Present Illness: Orthopedic consultation Dr. Persaud 43M complains of pain in left hand x approx 1 week. He says it started as a little red bump, and then it got bigger, and shows pictures of small abscess. He says that was about a week ago. It then opened up and drained pus, and when it didn't improve on PO keflex started on 05/08 he came to ER. He denies any known insect bites. He works in construction and wears gloves. He says now he has little pain. Denies numbness/tingling. RHD. He also complains of painful bump in his left underarm which started after the bump on his thumb. He had a fever at home. This is the first time he has had a problem like this. No trauma, falls, bajwa, prior injury to hand. PMH: nephrolithiasis NKDA Review of Systems - Review of Systems All systems: reviewed and no additional remarkable complaints except - Constitutional Constitutional: As Per HPI - Musculoskeletal Musculoskeletal: As Per HPI - Integumentary Integumentary: As Per HPI - Neurological Neurological: As Per HPI Past Patient History - Past Medical History & Family History Past Medical History?: Yes Past Family History: Reviewed and not pertinent - Past Social History Smoking Status: Never Smoked - RENAL Hx Chronic Kidney Disease: Yes Hx Kidney Stones: Yes - MUSCULOSKELETAL/RHEUMATOLOGICAL Hx Falls: No - PSYCHIATRIC Hx Substance Use: No - SURGICAL HISTORY Hx Surgeries: No - ANESTHESIA Hx Anesthesia: No Hx Anesthesia Reactions: No Hx Malignant Hyperthermia: No Meds Allergies/Adverse Reactions: Allergies Allergy/AdvReac Type Severity Reaction Status Date / Time No Known Allergies Allergy Verified 05/12/18 13:53 - Medications Medications: Current Medications Acetaminophen (Tylenol 325mg Tab) 650 mg PO Q6 PRN PRN Reason: Pain or Fever Piperacillin Sod/Tazobactam Sod (Zosyn 3.375 Gm Iv Premix) 3.375 gm in 50 mls @ 100 mls/hr IVPB Q6H [facility]; Protocol Last Admin: 05/14/18 11:55 Dose: 100 mls/hr Sodium Chloride (Sodium Chloride 0.9%) 1,000 mls @ 75 mls/hr IV .[id number] [facility] Last Admin: 05/14/18 03:16 Dose: 75 mls/hr Vancomycin/Sodium Chloride (Vancomycin 1 Gm/Ns 200 Ml) 1 gm in 200 mls @ 166.6 mls/hr IVPB Q12H [facility]; Protocol Stop: 05/19/18 12:31 Last Admin: 05/14/18 12:23 Dose: Not Given Physical Exam - Constitutional Appears: Well, No Acute Distress - Head Exam Head Exam: ATRAUMATIC - Neck Exam Neck exam: Positive for: Full Rom, Normal Inspection - Respiratory Exam Respiratory Exam: NORMAL BREATHING PATTERN - Cardiovascular Exam Additional comments: +radial pulse - Extremities Exam Additional comments: Relatively non tender. No tenderness to IP joint, MCP joint, basal joint. Full ROM of thumb without pain. 5/5 strength to flex/ext/abd/add of thumb. No pain to 1st webspace or rest of hand. cap refill < 2 sec to thumb. sensation intact. saline wet to dry placed. - Expanded Upper Extremities Exam Left Elbow exam: full ROM, normal inspection Forearm Wrist exam: full ROM, laceration Neuro motor exam: finger 2-5 abduction intact, thumb abduction, thumb IP flexion intact, thumb opposition intact, wrist extension intact Neurosensory exam: median nerve intact, radial nerve intact, ulnar nerve intact Vascular exam: radial pulse - Neurological Exam Neurological exam: Alert, Oriented x3 - Psychiatric Exam Psychiatric exam: Normal Affect, Normal Mood - Skin Skin Exam: Warm Additional comments: 4cm x 2.5 cm wound to dorsum of hand over 1st MC. appears spongy like granuloma. Most of this is dry, there is one area proximally that is draining serous fluid. No pus. No palpable abscess. Not able to express any pus. No surrounding eryt gia, there is a marker line noted, but no erythema at this time, suggesting improvement since admission Results - Vital Signs Recent Vital Signs: Last Vital Signs Temp 98.6 F 05/14/18 15:30 Pulse 71 05/14/18 15:30 Resp 20 05/14/18 15:30 BP 126/74 05/14/18 15:30 Pulse Ox 96 05/14/18 15:30 - Labs Result Diagrams: 05/14/18 06:43 05/14/18 06:43 Labs: Laboratory Results - last 24 hr 05/12/18 05/14/18 05/14/18 20:03 06:43 06:43 WBC 8.3 RBC 4.70 Hgb 14.5 Hct 41.8 MCV 88.9 MCH 30.9 MCHC 34.8 RDW 12.5 Plt Count 258 MPV 8.0 Neut % (Auto) 64.2 Lymph % (Auto) 23.3 [place] % (Auto) 8.1 Eos % (Auto) 3.4 Baso % (Auto) 1.0 Neut # (Auto) 5.3 Lymph # (Auto) 1.9 [place] # (Auto) 0.7 Eos # (Auto) 0.3 Baso # (Auto) 0.1 Sodium 137 Potassium 3.7 Chloride 102 Carbon Dioxide 26 Anion Gap 13 BUN 14 Creatinine 0.9 Est GFR ( Amer) > 60 Est GFR (Non-Af Amer) > 60 Random Glucose 100 Calcium 8.5 L Total Bilirubin 0.6 AST 24 ALT 27 Alkaline Phosphatase 75 Total Protein 6.9 Albumin 3.7 Globulin 3.1 Albumin/Globulin Ratio 1.2 Vancomycin Trough HIV 1&2 Antibody Screen Negative 05/14/18 06:43 WBC RBC Hgb Hct MCV MCH MCHC RDW Plt Count MPV Neut % (Auto) Lymph % (Auto) [place] % (Auto) Eos % (Auto) Baso % (Auto) Neut # (Auto) Lymph # (Auto) [place] # (Auto) Eos # (Auto) Baso # (Auto) Sodium Potassium Chloride Carbon Dioxide Anion Gap BUN Creatinine Est GFR ( Amer) Est GFR (Non-Af Amer) Random Glucose Calcium Total Bilirubin AST ALT Alkaline Phosphatase Total Protein Albumin Globulin Albumin/Globulin Ratio Vancomycin Trough < 5.0 L HIV 1&2 Antibody Screen - Impressions Impression: atient Name / ID : MANOLO PEREZ / [id number] Exam Date : 05/12/2018 20:01:55 ( Approved ) Study Comment : Sex / Age : M / 43Y Creator : Nathaniel Erwin MD Dictator : Nathaniel Erwin MD Material Planner : Pipe Line Walker : Nathaniel Erwin MD Approver2 : Report Date : 05/13/2018 11:40:46 My Comment : Date of service: 05/12/2018 PROCEDURE: CT of the left hand HISTORY: Left Hand Cellulitis COMPARISON: None available. TECHNIQUE: Contiguous axial images of the le left hand hip were obtained following intravenous injection of approximately 100 cc Visipaque 320. Coronal and sagittal reformats were generated. Radiation dose: Total exam DLP = 279.11 mGy-cm. This CT exam was performed using one or more of the following dose reduction techniques: Automated exposure control, adjustment of the mA and/or kV according to patient size, and/or use of iterative reconstruction technique. FINDINGS: BONES: The current study reveals no evidence of acute displaced fracture nor dislocation. The osseous structures appear intact. No obvious cortical destructive changes seen at this time to suggest osteomyelitis however consider follow-up MRI if early osteomyelitis suspected clinically as this cannot be completely excluded based on the current study. No evidence of significant osteoarthritis. SOFT TISSUES: There is a long somewhat rectangular/elliptical shaped hypodense fluid collection within the lateral (radial aspect) soft tissues of the left hand extending from the distal aspect of the 1st metacarpal proximally to the level of the triquetrum. This collection measures approximately 3.8 x 1.39 x 0.74 cm. Collection extends to the lateral volar skin surface with possible draining site best seen on axial series 3 image number 128 through 132. There is surrounding infiltration changes in the adjacent subcutaneous tissues and musculature consistent with cellulitis.. No evidence of subcutaneous emphysema IMPRESSION: Findings are consistent with a small elliptical shaped abscess collection with surrounding is infiltration changes consistent with cellulitis in the soft tissues of the lateral hand (radial aspect) at the level of the 1st metacarpal extending from distal metacarpal proximally to the level of the triquetrum.. No evidence of subcutaneous emphysema. No definitive bony destructive changes suggest osteomyelitis at this time however early osteomyelitis not excluded. Follow-up MRI may be prudent for further evaluation These findings are concordant with preliminary radiology reading. Assessment & Plan (1) Pyogenic granuloma of skin and subcutaneous tissue Assessment and Plan: secondary to previous abscess to dorsum of radial aspect of hand clinically doesn't appear there is any abscess to I&D, will follow up MRI no clinical suspicion of septic arthritis, tenosynovitis, appears superficial and limited to skin/subcutaneous tissue d/w DR. Persaud, will monitor daily at this time, and determine if there is any need for surgery/excision cont IV antibiotics as per ID saline wet to dry dressing will follow Status: Acute
[2018-05-15] MEDS: Piperacill/Tazo 3.375gm in Dex 3.375 GM/50 ML BAG IVPB SCH ×4 (04:11→23:00)
[2018-05-15] MEDS: Sodium Chloride 0.9% 1,000 ML IV SCH (05:34)
[2018-05-15 06:58] LABS: BASO # 0.1 K/uL (0.0-0.2); BASO % 1.3 % (0.0-2.0); EOS # 0.5 K/uL (0.0-0.7); EOS % 6.2 % (0.0-4.0); HEMOGLOBIN 14.6 g/dL (12.0-18.0); LYMPH # 2.1 K/uL (1.0-4.3); LYMPH % 28.5 % (20.0-40.0); MEAN CELL VOLUME 88.4 fL (80.0-94.0); MEAN CORPUSCULAR HEMOGLOBIN 30.5 pg (27.0-31.0); MEAN CORPUSCULAR HGB CONC 34.5 g/dL (33.0-37.0); MONO # 0.7 K/uL (0.0-0.8); MONO % 9.2 % (0.0-10.0); NEUT % 54.8 % (50.0-75.0); RBC 4.78 Mil/uL (4.40-5.90); RED CELL DISTRIBUTION WIDTH 12.4 % (11.5-14.5); WHITE BLOOD COUNT 7.3 K/uL (4.8-10.8)
[2018-05-15 08:13] LABS: ALB/GLOB RATIO 1.1 (1.0-2.1); ALBUMIN 3.7 g/dL (3.5-5.0); ALT/SGPT 26 U/L (21-72); AST/SGOT 29 U/L (17-59); BLOOD UREA NITROGEN 13 mg/dL (9-20); CALCIUM 8.9 mg/dl (8.6-10.4); GFR NON-AFRICAN AMERICAN > 60
--- NOTE | 2018-05-15 08:26 | CP.PCM.PN ---
Subjective - Date & Time of Evaluation Date of Evaluation: 05/15/18 Time of Evaluation: 08:23 - Subjective Subjective: Patient seen and examined with Dr. Persaud at bedside comfortable. Pain is well controlled. Offers no new complaints. Denies CP/SOB/fever/GROSSMAN. Objective - Vital Signs/Intake and Output Vital Signs (last 24 hours): Temp Pulse Resp BP Pulse Ox 98.3 F 73 20 126/83 96 05/15/18 07:53 05/15/18 07:53 05/15/18 07:53 05/15/18 07:53 05/15/18 07:53 Intake and Output: 05/15/18 05/15/18 06:59 18:59 Intake Total 2310 Balance 2310 - Medications Medications: Current Medications Acetaminophen (Tylenol 325mg Tab) 650 mg PO Q6 PRN PRN Reason: Pain or Fever Piperacillin Sod/Tazobactam Sod (Zosyn 3.375 Gm Iv Premix) 3.375 gm in 50 mls @ 100 mls/hr IVPB Q6H [facility]; Protocol Last Admin: 05/15/18 04:11 Dose: 100 mls/hr Sodium Chloride (Sodium Chloride 0.9%) 1,000 mls @ 75 mls/hr IV .[id number] [facility] Last Admin: 05/15/18 05:34 Dose: 75 mls/hr Vancomycin/Sodium Chloride (Vancomycin 1 Gm/Ns 200 Ml) 1 gm in 200 mls @ 166.6 mls/hr IVPB Q12H [facility]; Protocol Stop: 05/19/18 12:31 Last Admin: 05/14/18 23:32 Dose: 166.6 mls/hr - Labs Labs: 05/15/18 06:53 05/15/18 06:53 PT 12.7 SECONDS (9.7-12.2) H 05/12/18 16:43 INR 1.2 05/12/18 16:43 APTT 33 SECONDS (21-34) 05/12/18 16:43 - Extremities Exam Additional comments: L hand: Dressing intact with mild serous drainage 4cm x 2.5 cm wound to dorsum of hand over 1st MC with mild serous drainage. No pus. No fluctuance. No erythema sensation and motor intact MN/UN/TN cap refill 2 sec all fingers Assessment and Plan (1) Pyogenic granuloma of skin and subcutaneous tissue Assessment & Plan: -No acute orthopedic surgical intervention at this time -cont IV antibiotics as per ID -betadine soaks daily -orthopedically stable for discharge -october f/u in office within 2 weeks of discharge -above d/w Dr. Persaud in agreement Status: Acute
[2018-05-15] MEDS: Vancomycin 1 gm/NS 200 ml 1 GM/200 ML BAG IVPB SCH (11:38)
--- NOTE | 2018-05-15 13:55 | CP.PCM.PN ---
Subjective - Date & Time of Evaluation Date of Evaluation: 05/15/18 Time of Evaluation: 08:00 - Subjective Subjective: await MRI Objective - Vital Signs/Intake and Output Vital Signs (last 24 hours): Temp Pulse Resp BP Pulse Ox 98.3 F 73 20 126/83 96 05/15/18 07:53 05/15/18 07:53 05/15/18 07:53 05/15/18 07:53 05/15/18 07:53 Intake and Output: 05/15/18 05/15/18 06:59 18:59 Intake Total 2310 Balance 2310 - Medications Medications: Current Medications Acetaminophen (Tylenol 325mg Tab) 650 mg PO Q6 PRN PRN Reason: Pain or Fever Piperacillin Sod/Tazobactam Sod (Zosyn 3.375 Gm Iv Premix) 3.375 gm in 50 mls @ 100 mls/hr IVPB Q6H [facility]; Protocol Last Admin: 05/15/18 10:14 Dose: 100 mls/hr Sodium Chloride (Sodium Chloride 0.9%) 1,000 mls @ 75 mls/hr IV .[id number] [facility] Last Admin: 05/15/18 05:34 Dose: 75 mls/hr Vancomycin/Sodium Chloride (Vancomycin 1 Gm/Ns 200 Ml) 1 gm in 200 mls @ 166.6 mls/hr IVPB Q12H [facility]; Protocol Stop: 05/19/18 12:31 Last Admin: 05/15/18 11:38 Dose: 166.6 mls/hr - Labs Labs: 05/15/18 06:53 05/15/18 06:53 PT 12.7 SECONDS (9.7-12.2) H 05/12/18 16:43 INR 1.2 05/12/18 16:43 APTT 33 SECONDS (21-34) 05/12/18 16:43 - Constitutional Appears: Non-toxic, Chronically Ill - Head Exam Head Exam: NORMOCEPHALIC - Eye Exam Eye Exam: absent: Scleral icterus - ENT Exam ENT Exam: Mucous Membranes Dry - Neck Exam Neck Exam: absent: Lymphadenopathy - Respiratory Exam Respiratory Exam: Decreased Breath Sounds - Cardiovascular Exam Cardiovascular Exam: REGULAR RHYTHM - GI/Abdominal Exam GI & Abdominal Exam: Distended, Soft Assessment and Plan (1) Cellulitis of hand, left Status: Acute - Assessment and Plan (Free Text) Assessment: 4cm x 2.5 cm wound to dorsum of hand over 1st MC. appears spongy like granuloma. Most of this is dry, there is one area proximally that is draining serous fluid. No pus. No palpable abscess. Not able to express any pus. No surrounding erythema, there is a marker line noted, but no erythema at this time, suggesting improvement since admission
--- NOTE | 2018-05-15 14:05 | CP.PCM.PN ---
<Amy Hand - Last Filed: 05/15/18 14:02> Subjective - Date & Time of Evaluation Date of Evaluation: 05/15/18 Time of Evaluation: 11:40 - Subjective Subjective: PGY-1 Medicine Progress Note for Dr. Azevedo Patient was seen and examined today at bedside in no acute distress. Nurse reports no overnight events. Patient has no new complaints. He is still unable to fully use his L hand since the bandages get in the way, but he feels like it is less swollen and his care is going in the right direction. Denies fever, chills, numbness, tingling, chest pain, shortness of breath, difficulty urinating or having BM. Objective - Vital Signs/Intake and Output Vital Signs (last 24 hours): Temp Pulse Resp BP Pulse Ox 98.3 F 73 20 126/83 96 05/15/18 07:53 05/15/18 07:53 05/15/18 07:53 05/15/18 07:53 05/15/18 07:53 Intake and Output: 05/15/18 05/15/18 06:59 18:59 Intake Total 2310 Balance 2310 - Medications Medications: Current Medications Acetaminophen (Tylenol 325mg Tab) 650 mg PO Q6 PRN PRN Reason: Pain or Fever Piperacillin Sod/Tazobactam Sod (Zosyn 3.375 Gm Iv Premix) 3.375 gm in 50 mls @ 100 mls/hr IVPB Q6H [facility]; Protocol Last Admin: 05/15/18 10:14 Dose: 100 mls/hr Sodium Chloride (Sodium Chloride 0.9%) 1,000 mls @ 75 mls/hr IV .[id number] [facility] Last Admin: 05/15/18 05:34 Dose: 75 mls/hr Vancomycin/Sodium Chloride (Vancomycin 1 Gm/Ns 200 Ml) 1 gm in 200 mls @ 166.6 mls/hr IVPB Q12H [facility]; Protocol Stop: 05/19/18 12:31 Last Admin: 05/15/18 11:38 Dose: 166.6 mls/hr - Labs Labs: 05/15/18 06:53 05/15/18 06:53 PT 12.7 SECONDS (9.7-12.2) H 05/12/18 16:43 INR 1.2 05/12/18 16:43 APTT 33 SECONDS (21-34) 05/12/18 16:43 - Constitutional Appears: Well, No Acute Distress - Head Exam Head Exam: ATRAUMATIC, NORMOCEPHALIC - Eye Exam Eye Exam: EOMI, Normal appearance - ENT Exam ENT Exam: Mucous Membranes Moist - Respiratory Exam Respiratory Exam: Clear to Ausculation Bilateral, NORMAL BREATHING PATTERN. absent: Rales, Rhonchi, Wheezes - Cardiovascular Exam Cardiovascular Exam: REGULAR RHYTHM, +S1, +S2. absent: Gallop, Rubs, Murmur - GI/Abdominal Exam GI & Abdominal Exam: Soft, Normal Bowel Sounds. absent: Tenderness - Extremities Exam Extremities Exam: Normal Capillary Refill. absent: Calf Tenderness, Pedal Edema Additional comments: IV access in R forearm peripheral pulses palpable bilaterally (radial, ulnar, PT) - Neurological Exam Neurological Exam: Alert, Awake, Oriented x3 - Psychiatric Exam Psychiatric exam: Normal Affect, Normal Mood - Skin Skin Exam: Normal Color, Warm Additional comments: Left hand: Edema with bloody drainage with tenderness along radial aspect of left thumb at the level of metacarpal. Sensation of digits on left hand intact. Able to make a fist with left hand. Capillary refill <2 seconds. Wrapped with 4x4 and gauze. Dressings replaced daily, c/d/i Left axilla: small papular erythematous fluctuant region that are mildly tender to palpation. No axillary lymphadenopathy. Assessment and Plan - Assessment and Plan (Free Text) Assessment: 43 year old male with past medical history of nephrolithiasis admitted for evaluation and treatment of left hand/thumb cellulitis. Plan: Left Hand/Thumb Cellulitis - Remains afebrile - White count 7.3 - Left Hand X-ray: There is localized enlarged heterogeneous appearance of the soft tissues adjacent to the radial margin of the 1st metacarpal with presumed involvement of the thenar eminence and extending to the level of the triquetrum. Findings may represent a cellulitis and possible abscess. Follow up additional imaging such as a CT with IV contrast is recommended. - Left Hand CT (05/12/18): Findings are consistent with a small elliptical shaped abscess collection with surrounding is infiltration changes consistent with cellulitis in the soft tissues of the lateral hand (radial aspect) at the level of the 1st metacarpal extending from distal metacarpal proximally to the level of the triquetrum.. No evidence of subcutaneous emphysema. No definitive bony destructive changes suggest osteomyelitis at this time however early osteomyelitis not excluded. Follow-up MRI may be prudent for further evaluation - f/u left hand MRI results - HIV negative - Hand Surgery Consulted (Dr. Persaud), help appreciated: no surgical intervention at this time, october f/u in office within 2 weeks of d/c - ID Consulted (Dr. Bello), help appreciated - In ED patient received Clindamycin, Zosyn, Vancomycin - Wound Culture (05/12/18): positive for MRSA - Blood Cultures no growth x48 hours - Meds: Vancomycin 1 gram IV Q12 (vanc trough (05/15): 5.9. next trough 05/17) Zosyn 3.375 Q6H IV Tylenol 650mg PO Q6 PRN Tdap IM Given Once Proph DVT: Heparin 5000u sc q8, SCDs GI: not indicated Diet: Regular d/w Dr. Jolly Hand PGY-1 <Fredi Azevedo H - Last Filed: 05/16/18 07:19> Objective - Vital Signs/Intake and Output Vital Signs (last 24 hours): Temp Pulse Resp BP Pulse Ox 98.6 F 65 20 121/80 98 05/16/18 00:00 05/16/18 00:00 05/16/18 00:00 05/16/18 00:00 05/16/18 00:00 - Medications Medications: Current Medications Acetaminophen (Tylenol 325mg Tab) 650 mg PO Q6 PRN PRN Reason: Pain or Fever Heparin Sodium (Porcine) (Heparin) 5,000 units SC Q8 [facility] Last Admin: 05/15/18 21:35 Dose: 5,000 units Piperacillin Sod/Tazobactam Sod (Zosyn 3.375 Gm Iv Premix) 3.375 gm in 50 mls @ 100 mls/hr IVPB Q6H [facility]; Protocol Last Admin: 05/16/18 04:22 Dose: 100 mls/hr Vancomycin/Sodium Chloride (Vancomycin 1 Gm/Ns 200 Ml) 1 gm in 200 mls @ 166.6 mls/hr IVPB Q12H [facility]; Protocol Stop: 05/19/18 12:31 Last Admin: 05/16/18 00:03 Dose: 166.6 mls/hr - Labs Labs: 05/15/18 06:53 05/15/18 06:53 PT 12.7 SECONDS (9.7-12.2) H 05/12/18 16:43 INR 1.2 05/12/18 16:43 APTT 33 SECONDS (21-34) 05/12/18 16:43 Attending/Attestation - Attestation I have personally seen and examined this patient.: Yes I have fully participated in the care of the patient.: Yes I have reviewed all pertinent clinical information, including history, physical exam and plan: Yes Notes (Text): 05/16/18 07:15 Medical attending: Patient was seen and examined by me. Agree with the above note by the resident The patient was not in acute distress, surgery is not planning on interventions. The patient's hand was unwrapped and I looked at it myself. Currently is on IV abx, there is a positive culture for MSSA at this moment Patient showed us photos of before all of this started and it maybe that it was a folliculitis that unfourtunately became complicated Fredi Azevedo
--- NOTE | 2018-05-15 14:33 | MRI ---
MRI left hand HISTORY: Soft tissue abscess. COMPARISON: CT scan dated 05/12/2018 TECHNIQUE: Multi-echo multiplanar sequences were performed through the left hand without the use of intravenous contrast. Findings: Again identified is a moderate-sized abscess collection seen within the radial sided soft tissues at the radial aspect of the 1st metacarpal measuring up to 2.3 x 1.0 x 2.7 centimeters. Associated prominent reticulation and edema. The edema appears to abut the radial sided cortex of the 1st metacarpal bone; however, there is no gross signal abnormality within the 1st metacarpal to suggest an acute osteomyelitis. 8 millimeter subchondral cyst formation noted within the head of the 3rd metacarpal bone. Remainder of the visualized osseous structures appear grossly preserved. Visualized extensor tendons are grossly preserved. Visualized flexor tendons are grossly preserved. Impression: Again identified is a moderate-sized abscess collection seen within the radial sided soft tissues at the radial aspect of the 1st metacarpal measuring up to 2.3 x 1.0 x 2.7 centimeters. Associated prominent reticulation and edema. The edema appears to abut the radial sided cortex of the 1st metacarpal bone; however, there is no gross signal abnormality within the 1st metacarpal to suggest an acute osteomyelitis. Continued interval follow-up and/or post treatment interval follow-up may be helpful if clinically indicated to exclude a developing acute and or early acute osteomyelitis.
[2018-05-16] MEDS: Vancomycin 1 gm/NS 200 ml 1 GM/200 ML BAG IVPB SCH ×3 (00:03→21:43)
[2018-05-16] MEDS: Piperacill/Tazo 3.375gm in Dex 3.375 GM/50 ML BAG IVPB SCH ×4 (04:22→22:39)
[2018-05-16 07:20] LABS: BASO # 0.1 K/uL (0.0-0.2); BASO % 1.3 % (0.0-2.0); EOS # 0.4 K/uL (0.0-0.7); EOS % 5.6 % (0.0-4.0); HEMOGLOBIN 15.3 g/dL (12.0-18.0); LYMPH # 2.2 K/uL (1.0-4.3); LYMPH % 29.5 % (20.0-40.0); MEAN CELL VOLUME 88.5 fL (80.0-94.0); MEAN CORPUSCULAR HEMOGLOBIN 30.6 pg (27.0-31.0); MEAN CORPUSCULAR HGB CONC 34.6 g/dL (33.0-37.0); MEAN PLATELET VOLUME 7.8 fL (7.2-11.7); MONO # 0.6 K/uL (0.0-0.8); MONO % 8.5 % (0.0-10.0); NEUT # 4.2 K/uL (1.8-7.0); NEUT % 55.1 % (50.0-75.0); NRBC % 0.1 % (0.0-2.0); RBC 4.99 Mil/uL (4.40-5.90); RED CELL DISTRIBUTION WIDTH 12.7 % (11.5-14.5); WHITE BLOOD COUNT 7.6 K/uL (4.8-10.8)
[2018-05-16 07:41] LABS: ALB/GLOB RATIO 1.2 (1.0-2.1); ALT/SGPT 31 U/L (21-72); AST/SGOT 29 U/L (17-59); BLOOD UREA NITROGEN 16 mg/dL (9-20); CALCIUM 9.1 mg/dl (8.6-10.4); GFR NON-AFRICAN AMERICAN > 60
--- NOTE | 2018-05-16 09:44 | CP.PCM.PN ---
<Suha Torres - Last Filed: 05/16/18 18:59> Subjective - Date & Time of Evaluation Date of Evaluation: 05/16/18 Time of Evaluation: 09:44 - Subjective Subjective: Progress note for Hospitalist service Patient seen and examined at bedside. He states that his current pain is improved from before. He denies fevers, chills, chest pain, shortness of breath, abdominal pain, nausea, vomiting, diarrhea, leg pain. He states he is able to make a fist with his hand. Objective - Vital Signs/Intake and Output Vital Signs (last 24 hours): Temp Pulse Resp BP Pulse Ox 98.2 F 71 20 115/74 95 05/16/18 09:42 05/16/18 09:42 05/16/18 09:42 05/16/18 09:42 05/16/18 09:42 Intake and Output: 05/16/18 05/16/18 06:59 18:59 Intake Total 400 Output Total 400 Balance 0 - Medications Medications: Current Medications Acetaminophen (Tylenol 325mg Tab) 650 mg PO Q6 PRN PRN Reason: Pain or Fever Heparin Sodium (Porcine) (Heparin) 5,000 units SC Q8 [facility] Last Admin: 05/16/18 07:00 Dose: 5,000 units Piperacillin Sod/Tazobactam Sod (Zosyn 3.375 Gm Iv Premix) 3.375 gm in 50 mls @ 100 mls/hr IVPB Q6H [facility]; Protocol Last Admin: 05/16/18 04:22 Dose: 100 mls/hr Vancomycin/Sodium Chloride (Vancomycin 1 Gm/Ns 200 Ml) 1 gm in 200 mls @ 166.6 mls/hr IVPB Q12H [facility]; Protocol Stop: 05/19/18 12:31 Last Admin: 05/16/18 00:03 Dose: 166.6 mls/hr - Labs Labs: 05/16/18 07:07 05/16/18 07:07 PT 12.7 SECONDS (9.7-12.2) H 05/12/18 16:43 INR 1.2 05/12/18 16:43 APTT 33 SECONDS (21-34) 05/12/18 16:43 - Constitutional Appears: Well, No Acute Distress - Head Exam Head Exam: ATRAUMATIC, NORMOCEPHALIC - Eye Exam Eye Exam: EOMI - ENT Exam ENT Exam: Mucous Membranes Moist - Neck Exam Neck Exam: Full ROM - Respiratory Exam Respiratory Exam: Clear to Ausculation Bilateral, NORMAL BREATHING PATTERN. absent: Rales, Rhonchi, Wheezes, Respiratory Distress, Stridor - Cardiovascular Exam Cardiovascular Exam: REGULAR RHYTHM, +S1, +S2. absent: Gallop, Rubs, Murmur - GI/Abdominal Exam GI & Abdominal Exam: Soft, Normal Bowel Sounds. absent: Distended, Firm, Guarding, Rigid, Tenderness, Organomegaly - Extremities Exam Extremities Exam: absent: Calf Tenderness, Pedal Edema Additional comments: Left hand: erythema, edema with mild tenderness along radial aspect of left thumb at the level of 1st metacarpal. Sensation of digit on left hand intact. Able to make a fist. Capillary refill <2seconds. Wrapped with gauze. Dressing replaced daily, clean dry intact. Left axilla: Small papular erythematous fluctuant region that is mildly tender to palpation. no lymphadenopathy. - Neurological Exam Neurological Exam: Alert, Awake, Oriented x3 - Psychiatric Exam Psychiatric exam: Normal Affect, Normal Mood - Skin Skin Exam: Dry, Intact, Warm Assessment and Plan - Assessment and Plan (Free Text) Plan: Assessment: 43 year old male with past medical history of nephrolithiasis admitted for evaluation and treatment of left hand/thumb cellulitis. Plan: Left Hand/Thumb Cellulitis - Remains afebrile - White count 7.6 - Left Hand X-ray: There is localized enlarged heterogeneous appearance of the soft tissues adjacent to the radial margin of the 1st metacarpal with presumed involvement of the thenar eminence and extending to the level of the triquetrum. Findings may represent a cellulitis and possible abscess. Follow up additional imaging such as a CT with IV contrast is recommended. - Left Hand CT (05/12/18): Findings are consistent with a small elliptical shaped abscess collection with surrounding is infiltration changes consistent with cellulitis in the soft tissues of the lateral hand (radial aspect) at the level of the 1st metacarpal extending from distal metacarpal proximally to the level of the triquetrum.. No evidence of subcutaneous emphysema. No definitive bony destructive changes suggest osteomyelitis at this time however early osteomyelitis not excluded. Follow-up MRI may be prudent for further evaluation - Left hand MRI: Again identified is a moderate-sized abscess collection seen within the radial sided soft tissues at the radial aspect of the 1st metacarpal measuring up to 2.3 x 1.0 x 2.7 centimeters. Associated prominent reticulation and edema. The edema appears to abut the radial sided cortex of the 1st metacarpal bone; however, there is no gross signal abnormality within the 1st metacarpal to suggest an acute osteomyelitis. Continued interval follow-up and/or post treatment interval follow-up may be helpful if clinically indicated to exclude a developing acute and or early acute osteomyelitis. - HIV negative - Hand Surgery Consulted (Dr. Persaud), help appreciated: no surgical intervention at this time, may f/u in office within 2 weeks of d/c - ID Consulted (Dr. Bello), help appreciated - In ED patient received Clindamycin, Zosyn, Vancomycin - Wound Culture (05/12/18): positive for MRSA - Blood Cultures no growth x48 hours - Meds: Vancomycin 1 gram IV Q12 (vanc trough (05/15): 5.9. next trough 05/17) Zosyn 3.375 Q6H IV Tylenol 650mg PO Q6 PRN Tdap IM Given Once Proph DVT: Heparin 5000u sc q8, SCDs GI: not indicated Diet: Regular Case discussed with Dr. Jolly Torres, PGY1 <Fredi Azevedo H - Last Filed: 05/17/18 06:51> Objective - Vital Signs/Intake and Output Vital Signs (last 24 hours): Temp Pulse Resp BP Pulse Ox 98.9 F 65 20 125/84 95 05/17/18 00:00 05/17/18 00:00 05/17/18 00:00 05/17/18 00:00 05/17/18 00:00 Intake and Output: 05/16/18 05/17/18 18:59 06:59 Intake Total 400 450 Output Total 400 Balance 0 450 - Medications Medications: Current Medications Acetaminophen (Tylenol 325mg Tab) 650 mg PO Q6 PRN PRN Reason: Pain or Fever Heparin Sodium (Porcine) (Heparin) 5,000 units SC Q8 [facility] Last Admin: 05/17/18 05:32 Dose: 5,000 units Piperacillin Sod/Tazobactam Sod (Zosyn 3.375 Gm Iv Premix) 3.375 gm in 50 mls @ 100 mls/hr IVPB Q6H [facility]; Protocol Last Admin: 05/17/18 05:13 Dose: 100 mls/hr Vancomycin/Sodium Chloride (Vancomycin 1 Gm/Ns 200 Ml) 1 gm in 200 mls @ 133.333 mls/hr IVPB Q8H [facility]; Protocol Last Admin: 05/17/18 03:50 Dose: 133.333 mls/hr - Labs Labs: 05/16/18 07:07 05/16/18 07:07 PT 12.7 SECONDS (9.7-12.2) H 05/12/18 16:43 INR 1.2 05/12/18 16:43 APTT 33 SECONDS (21-34) 05/12/18 16:43 Attending/Attestation - Attestation I have personally seen and examined this patient.: Yes I have fully participated in the care of the patient.: Yes I have reviewed all pertinent clinical information, including history, physical exam and plan: Yes
[2018-05-17] MEDS: Vancomycin 1 gm/NS 200 ml 1 GM/200 ML BAG IVPB SCH ×3 (03:50→20:29)
[2018-05-17] MEDS: Piperacill/Tazo 3.375gm in Dex 3.375 GM/50 ML BAG IVPB SCH ×4 (05:13→22:26)
--- NOTE | 2018-05-17 07:07 | CP.PCM.PN ---
<Suha Torres - Last Filed: 05/17/18 17:44> Subjective - Date & Time of Evaluation Date of Evaluation: 05/17/18 Time of Evaluation: 07:07 - Subjective Subjective: Progress note for Hospitalist service Patient seen and examined at bedside. He states that his pain in his left hand is much improved. He denies fevers, chills, chest pain, shortness of breath, abdominal pain, nausea, vomiting, diarrhea, leg pain, dysuria, leg swelling. Objective - Vital Signs/Intake and Output Vital Signs (last 24 hours): Temp Pulse Resp BP Pulse Ox 98.9 F 65 20 125/84 95 05/17/18 00:00 05/17/18 00:00 05/17/18 00:00 05/17/18 00:00 05/17/18 00:00 Intake and Output: 05/17/18 05/17/18 06:59 18:59 Intake Total 450 Balance 450 - Medications Medications: Current Medications Acetaminophen (Tylenol 325mg Tab) 650 mg PO Q6 PRN PRN Reason: Pain or Fever Heparin Sodium (Porcine) (Heparin) 5,000 units SC Q8 [facility] Last Admin: 05/17/18 05:32 Dose: 5,000 units Piperacillin Sod/Tazobactam Sod (Zosyn 3.375 Gm Iv Premix) 3.375 gm in 50 mls @ 100 mls/hr IVPB Q6H [facility]; Protocol Last Admin: 05/17/18 05:13 Dose: 100 mls/hr Vancomycin/Sodium Chloride (Vancomycin 1 Gm/Ns 200 Ml) 1 gm in 200 mls @ 133.333 mls/hr IVPB Q8H [facility]; Protocol Last Admin: 05/17/18 03:50 Dose: 133.333 mls/hr - Labs Labs: 05/16/18 07:07 05/16/18 07:07 PT 12.7 SECONDS (9.7-12.2) H 05/12/18 16:43 INR 1.2 05/12/18 16:43 APTT 33 SECONDS (21-34) 05/12/18 16:43 - Constitutional Appears: Well, No Acute Distress - Head Exam Head Exam: ATRAUMATIC, NORMOCEPHALIC - Eye Exam Eye Exam: EOMI - ENT Exam ENT Exam: Mucous Membranes Moist - Neck Exam Neck Exam: Full ROM - Respiratory Exam Respiratory Exam: Clear to Ausculation Bilateral. absent: Rales, Rhonchi, Wheezes, Respiratory Distress, Stridor - Cardiovascular Exam Cardiovascular Exam: REGULAR RHYTHM, +S1, +S2. absent: Gallop, Rubs, Murmur - GI/Abdominal Exam GI & Abdominal Exam: Soft, Normal Bowel Sounds. absent: Distended, Firm, Guarding, Rigid, Tenderness, Organomegaly - Extremities Exam Additional comments: Left hand: Improved erythema, edema with mild tenderness along radial aspect of left thumb at the level of 1st metacarpal. No active discharge noted. Sensation of digit on left hand intact. Able to make a fist. Capillary refill <2seconds. Dressing replaced daily, clean dry intact. Left axilla: Small papular erythematous fluctuant region that is mildly tender to palpation. no lymphadenopathy. - Neurological Exam Neurological Exam: Alert, Awake, Oriented x3 Assessment and Plan - Assessment and Plan (Free Text) Plan: Assessment: 43 year old male with past medical history of nephrolithiasis admitted for evaluation and treatment of left hand/thumb cellulitis. Plan: Left Hand/Thumb Cellulitis - Remains afebrile - White count 7.1 - Left Hand X-ray: There is localized enlarged heterogeneous appearance of the soft tissues adjacent to the radial margin of the 1st metacarpal with presumed involvement of the thenar eminence and extending to the level of the triquetrum. Findings may represent a cellulitis and possible abscess. Follow up additional imaging such as a CT with IV contrast is recommended. - Left Hand CT (05/12/18): Findings are consistent with a small elliptical shaped abscess collection with surrounding is infiltration changes consistent with cellulitis in the soft tissues of the lateral hand (radial aspect) at the level of the 1st metacarpal extending from distal metacarpal proximally to the level of the triquetrum.. No evidence of subcutaneous emphysema. No definitive bony destructive changes suggest osteomyelitis at this time however early osteomyelitis not excluded. Follow-up MRI may be prudent for further evaluation - Left hand MRI: Again identified is a moderate-sized abscess collection seen within the radial sided soft tissues at the radial aspect of the 1st metacarpal measuring up to 2.3 x 1.0 x 2.7 centimeters. Associated prominent reticulation and edema. The edema appears to abut the radial sided cortex of the 1st metacarpal bone; however, there is no gross signal abnormality within the 1st metacarpal to suggest an acute osteomyelitis. Continued interval follow-up and/or post treatment interval follow-up may be helpful if clinically indicated to exclude a developing acute and or early acute osteomyelitis. - HIV negative - Hand Surgery Consulted (Dr. Persaud), help appreciated: betadine soaks, no cody gical intervention at this time, may f/u in office within 2 weeks of d/c - ID Consulted (Dr. Bello), help appreciated - In ED patient received Clindamycin, Zosyn, Vancomycin - Wound Culture (05/12/18): positive for MRSA - Blood Cultures no growth x 5 days - Meds: Vancomycin 1 gram IV Q12 (vanc trough (05/15): 5.9. vanc trough (05/17): 13.1, next trough 05/19 Zosyn 3.375 Q6H IV Tylenol 650mg PO Q6 PRN Tdap IM Given Once Proph DVT: Heparin 5000u sc q8, SCDs GI: not indicated Diet: Regular Case discussed with Dr. Jolly Torres, PGY1 <Fredi Azevedo H - Last Filed: 05/18/18 07:03> Objective - Vital Signs/Intake and Output Vital Signs (last 24 hours): Temp Pulse Resp BP Pulse Ox 98.2 F 63 20 127/81 98 05/17/18 16:00 05/17/18 16:00 05/17/18 16:00 05/17/18 16:00 05/17/18 16:00 Intake and Output: 05/17/18 05/18/18 18:59 06:59 Intake Total 780 Balance 780 - Medications Medications: Current Medications Acetaminophen (Tylenol 325mg Tab) 650 mg PO Q6 PRN PRN Reason: Pain or Fever Heparin Sodium (Porcine) (Heparin) 5,000 units SC Q8 [facility]O Last Admin: 05/17/18 14:26 Dose: 5,000 units Piperacillin Sod/Tazobactam Sod (Zosyn 3.375 Gm Iv Premix) 3.375 gm in 50 mls @ 100 mls/hr IVPB Q6H [facility]; Protocol Last Admin: 05/17/18 16:39 Dose: 100 mls/hr Vancomycin/Sodium Chloride (Vancomycin 1 Gm/Ns 200 Ml) 1 gm in 200 mls @ 133.333 mls/hr IVPB Q8H [facility]; Protocol Last Admin: 05/17/18 11:55 Dose: 133.333 mls/hr - Labs Labs: 05/17/18 07:32 05/17/18 07:32 PT 12.7 SECONDS (9.7-12.2) H 05/12/18 16:43 INR 1.2 05/12/18 16:43 APTT 33 SECONDS (21-34) 05/12/18 16:43 Attending/Attestation - Attestation I have personally seen and examined this patient.: Yes I have fully participated in the care of the patient.: Yes I have reviewed all pertinent clinical information, including history, physical exam and plan: Yes Notes (Text): 05/18/18 06:55 Medical attending: Patient was seen and examined by me, reviewed the above note by the resident The patient was not in any acute distress. He has had MRI of the hand and it does not show osteomylitis. There is a 2.3 x 1.0 x 2.7 centimeters area abbcess His hand is still covered with dressing. He is afebrile. On exam he was able to quickly move his thumb and close and open hand without pain. Fredi Azevedo
[2018-05-17 07:40] LABS: BASO # 0.1 K/uL (0.0-0.2); BASO % 1.2 % (0.0-2.0); EOS # 0.3 K/uL (0.0-0.7); EOS % 4.8 % (0.0-4.0); HEMOGLOBIN 15.2 g/dL (12.0-18.0); LYMPH # 1.9 K/uL (1.0-4.3); LYMPH % 27.4 % (20.0-40.0); MEAN CELL VOLUME 88.7 fL (80.0-94.0); MEAN CORPUSCULAR HEMOGLOBIN 30.6 pg (27.0-31.0); MEAN CORPUSCULAR HGB CONC 34.5 g/dL (33.0-37.0); MEAN PLATELET VOLUME 7.7 fL (7.2-11.7); MONO # 0.6 K/uL (0.0-0.8); NEUT # 4.2 K/uL (1.8-7.0); NEUT % 58.6 % (50.0-75.0); RBC 4.98 Mil/uL (4.40-5.90); RED CELL DISTRIBUTION WIDTH 12.7 % (11.5-14.5); WHITE BLOOD COUNT 7.1 K/uL (4.8-10.8)
[2018-05-17 08:16] LABS: ALB/GLOB RATIO 1.2 (1.0-2.1); ALBUMIN 3.9 g/dL (3.5-5.0); ALT/SGPT 31 U/L (21-72); AST/SGOT 24 U/L (17-59); BLOOD UREA NITROGEN 17 mg/dL (9-20); GFR NON-AFRICAN AMERICAN > 60
[2018-05-18 02:14] VITALS: BP 121/80; O2SAT 96
[2018-05-18] MEDS: Vancomycin 1 gm/NS 200 ml 1 GM/200 ML BAG IVPB SCH ×2 (04:17→11:41)
[2018-05-18] MEDS: Piperacill/Tazo 3.375gm in Dex 3.375 GM/50 ML BAG IVPB SCH ×2 (06:00→10:53)
[2018-05-18 06:27] LABS: BASO # 0.1 K/uL (0.0-0.2); BASO % 1.4 % (0.0-2.0); EOS # 0.3 K/uL (0.0-0.7); EOS % 4.3 % (0.0-4.0); HEMOGLOBIN 15.4 g/dL (12.0-18.0); LYMPH # 2.1 K/uL (1.0-4.3); MEAN CELL VOLUME 88.5 fL (80.0-94.0); MEAN CORPUSCULAR HEMOGLOBIN 30.6 pg (27.0-31.0); MEAN CORPUSCULAR HGB CONC 34.5 g/dL (33.0-37.0); MEAN PLATELET VOLUME 7.8 fL (7.2-11.7); MONO # 0.7 K/uL (0.0-0.8); MONO % 8.7 % (0.0-10.0); NEUT # 4.8 K/uL (1.8-7.0); NEUT % 59.6 % (50.0-75.0); RBC 5.02 Mil/uL (4.40-5.90); RED CELL DISTRIBUTION WIDTH 12.6 % (11.5-14.5)
[2018-05-18 06:46] LABS: ALB/GLOB RATIO 1.2 (1.0-2.1); ALT/SGPT 28 U/L (21-72); AST/SGOT 26 U/L (17-59); BLOOD UREA NITROGEN 16 mg/dL (9-20); GFR NON-AFRICAN AMERICAN > 60
--- NOTE | 2018-05-18 07:03 | CP.PCM.PN ---
Subjective - Date & Time of Evaluation Date of Evaluation: 05/18/18 Time of Evaluation: 07:03 Objective - Vital Signs/Intake and Output Vital Signs (last 24 hours): Temp Pulse Resp BP Pulse Ox 98.4 F 66 20 121/80 96 05/18/18 00:00 05/18/18 00:00 05/18/18 00:00 05/18/18 00:00 05/18/18 00:00 - Medications Medications: Current Medications Acetaminophen (Tylenol 325mg Tab) 650 mg PO Q6 PRN PRN Reason: Pain or Fever Heparin Sodium (Porcine) (Heparin) 5,000 units SC Q8 GILBERTO Last Admin: 05/18/18 05:23 Dose: 5,000 units Piperacillin Sod/Tazobactam Sod (Zosyn 3.375 Gm Iv Premix) 3.375 gm in 50 mls @ 100 mls/hr IVPB Q6H GILBERTO; Protocol Last Admin: 05/18/18 06:00 Dose: 100 mls/hr Vancomycin/Sodium Chloride (Vancomycin 1 Gm/Ns 200 Ml) 1 gm in 200 mls @ 133. 333 mls/hr IVPB Q8H GILBERTO; Protocol Last Admin: 05/18/18 04:17 Dose: 133.333 mls/hr - Labs Labs: 05/18/18 06:18 05/18/18 06:18 PT 12.7 SECONDS (9.7-12.2) H 05/12/18 16:43 INR 1.2 05/12/18 16:43 APTT 33 SECONDS (21-34) 05/12/18 16:43
[2018-05-18 08:16] VITALS: PULSE 75; TEMP 98
--- NOTE | 2018-05-18 14:45 | CP.PCM.DIS ---
<Suha Torres - Last Filed: 05/18/18 18:00> Provider - Provider Date of Admission: 05/12/18 17:19 Attending physician: Fredi Azevedo DO Consults: Ortho: Dr. Persaud ID: Dr. Bello Time Spent in preparation of Discharge (in minutes): 35 Hospital Course - Lab Results Lab Results: Micro Results 05/12/18 15:53 Blood Blood Culture - Final NO GROWTH AFTER 5 DAYS 05/12/18 15:53 Blood Gram Stain - Final TEST NOT PERFORMED 05/12/18 15:53 Blood Blood Culture - Final NO GROWTH AFTER 5 DAYS 05/12/18 15:53 Blood Gram Stain - Final TEST NOT PERFORMED 05/12/18 15:51 Hand - Left Gram Stain - Final 05/12/18 15:51 Hand - Left Wound Culture - Final Methicillin Resistant S Aureus Most Recent Lab Values WBC 8.0 K/uL (4.8-10.8) 05/18/18 06:18 RBC 5.02 Mil/uL (4.40-5.90) 05/18/18 06:18 Hgb 15.4 g/dL (12.0-18.0) 05/18/18 06:18 Hct 44.5 % (35.0-51.0) 05/18/18 06:18 MCV 88.5 fL (80.0-94.0) 05/18/18 06:18 MCH 30.6 pg (27.0-31.0) 05/18/18 06:18 MCHC 34.5 g/dL (33.0-37.0) 05/18/18 06:18 RDW 12.6 % (11.5-14.5) 05/18/18 06:18 Plt Count 317 K/uL (130-400) 05/18/18 06:18 MPV 7.8 fL (7.2-11.7) 05/18/18 06:18 Neut % (Auto) 59.6 % (50.0-75.0) 05/18/18 06:18 Lymph % (Auto) 26.0 % (20.0-40.0) 05/18/18 06:18 Montgomery % (Auto) 8.7 % (0.0-10.0) 05/18/18 06:18 Eos % (Auto) 4.3 % (0.0-4.0) H 05/18/18 06:18 Baso % (Auto) 1.4 % (0.0-2.0) 05/18/18 06:18 Neut # (Auto) 4.8 K/uL (1.8-7.0) 05/18/18 06:18 Lymph # (Auto) 2.1 K/uL (1.0-4.3) 05/18/18 06:18 Montgomery # (Auto) 0.7 K/uL (0.0-0.8) 05/18/18 06:18 Eos # (Auto) 0.3 K/uL (0.0-0.7) 05/18/18 06:18 Baso # (Auto) 0.1 K/uL (0.0-0.2) 05/18/18 06:18 PT 12.7 SECONDS (9.7-12.2) H 05/12/18 16:43 INR 1.2 05/12/18 16:43 APTT 33 SECONDS (21-34) 05/12/18 16:43 Sodium 138 mmol/L (132-148) 05/18/18 06:18 Potassium 4.2 mmol/L (3.6-5.2) 05/18/18 06:18 Chloride 100 mmol/L (98-107) 05/18/18 06:18 Carbon Dioxide 27 mmol/L (22-30) 05/18/18 06:18 Anion Gap 15 (10-20) 05/18/18 06:18 BUN 16 mg/dL (9-20) 05/18/18 06:18 Creatinine 1.1 mg/dL (0.8-1.5) 05/18/18 06:18 Est GFR ( Amer) > 60 05/18/18 06:18 Est GFR (Non-Af Amer) > 60 05/18/18 06:18 Random Glucose 94 mg/dL (75-110) 05/18/18 06:18 Hemoglobin A1c 5.6 % (4.2-6.5) 05/12/18 20:03 Calcium 9.0 mg/dl (8.6-10.4) 05/18/18 06:18 Phosphorus 4.3 mg/dL (2.5-4.5) 05/18/18 06:18 Magnesium 2.2 mg/dL (1.6-2.3) 05/18/18 06:18 Total Bilirubin 0.5 mg/dL (0.2-1.3) 05/18/18 06:18 AST 26 U/L (17-59) 05/18/18 06:18 ALT 28 U/L (21-72) 05/18/18 06:18 Alkaline Phosphatase 73 U/L (38-126) 05/18/18 06:18 Total Protein 7.3 g/dL (6.3-8.3) 05/18/18 06:18 Albumin 4.0 g/dL (3.5-5.0) 05/18/18 06:18 Globulin 3.3 gm/dL (2.2-3.9) 05/18/18 06:18 Albumin/Globulin Ratio 1.2 (1.0-2.1) 05/18/18 06:18 Urine Color Straw (YELLOW) 05/12/18 15:51 Urine Clarity Clear (Clear) 05/12/18 15:51 Urine pH 6.0 (5.0-8.0) 05/12/18 15:51 Ur Specific Hel[place] 1.008 (1.003-1.030) 05/12/18 15:51 Urine Protein Negative mg/dL (NEGATIVE) 05/12/18 15:51 Urine Glucose (UA) Normal mg/dL (Normal) 05/12/18 15:51 Urine Ketones Negative mg/dL (NEGATIVE) 05/12/18 15:51 Urine Blood Negative (NEGATIVE) 05/12/18 15:51 Urine Nitrate Negative (NEGATIVE) 05/12/18 15:51 Urine Bilirubin Negative (NEGATIVE) 05/12/18 15:51 Urine Urobilinogen Normal mg/dL (0.2-1.0) 05/12/18 15:51 Ur Leukocyte Esterase Neg Miguel/uL (Negative) 05/12/18 15:51 Urine WBC (Auto) 1 /hpf (0-5) 05/12/18 15:51 Urine RBC (Auto) 1 /hpf (0-3) 05/12/18 15:51 Vancomycin Trough 13.1 ug/mL (5.0-10.0) H 05/17/18 11:10 HIV 1&2 Antibody Screen Negative (NEGATIVE) 05/12/18 20:03 - Hospital Course Hospital Course: On admission: Mr. Garcia is a 43 year old male with a past medical history of nephrolithiasis who presents with complaints left hand/thumb swelling/pain with associated sanguinopurulent drainage. Patient states that his wound began as a bump on the evening of 05/07/18 and worsened. 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 Over the course of his wound he has attempted several modalities to treat his wound including sucking on it, poking wound with pin and trying to open it up, warm salt water, bottled water, and aloe-vera. He eventually went to a clinic and was prescribed Keflex 500 BID, which he has been taking since 05/08. Patient does admit to subjective fever on Monday which resolved with ibuprofen. Hospital course: Patient was admitted for pyogenic granuloma of left hand. ID Dr. Bello was consulted who treated patient with Vancomycin and Zosyn after wound cultures were positive for MRSA. Hand Surgery Dr. Persaud was consulted who recommended betadine soaks, with no surgical intervention necessary after left hand/thumb significantly improved. Blood cultures were negative for growth. Patient was afebrile and with no leukocytosis noted. Patient received Tdap. On discharge, patient had good range of motion of fingers on left hand, able to move left thumb without pain, with no active drainage noted from granuloma. Patient was given instructions of how to change dressings and was provided with supplies. Imaging: - Left Hand X-ray: There is localized enlarged heterogeneous appearance of the soft tissues adjacent to the radial margin of the 1st metacarpal with presumed involvement of the thenar eminence and extending to the level of the triquetrum. Findings may represent a cellulitis and possible abscess. Follow up additional imaging such as a CT with IV contrast is recommended. - Left Hand CT (05/12/18): Findings are consistent with a small elliptical shaped abscess collection with surrounding is infiltration changes consistent with cellulitis in the soft tissues of the lateral hand (radial aspect) at the level of the 1st metacarpal extending from distal metacarpal proximally to the level of the triquetrum.. No evidence of subcutaneous emphysema. No definitive bony destructive changes suggest osteomyelitis at this time however early osteomyelitis not excluded. Follow-up MRI may be prudent for further evaluation - Left hand MRI: Again identified is a moderate-sized abscess collection seen within the radial sided soft tissues at the radial aspect of the 1st metacarpal measuring up to 2.3 x 1.0 x 2.7 centimeters. Associated prominent reticulation and edema. The edema appears to abut the radial sided cortex of the 1st metacarpal bone; however, there is no gross signal abnormality within the 1st metacarpal to suggest an acute osteomyelitis. Continued interval follow-up and/or post treatment interval follow-up may be helpful if clinically indicated to exclude a developing acute and or early acute osteomyelitis. Discharge instructions: Please follow up with [address] at [phone] in 1 to 2 weeks. For your hand, we recommend you follow up with the wound clinic in [place] at [address] [place] [address] by calling [phone]. Keep area clean and dry. You have been given instructions on how to clean the area and change dressings daily. You have been given a prescription for antibiotics. If you experience worsening of pain or swelling, along with fevers and chills, please seek medical care at the clinic or the Emergency Department. Prescriptions: Clindamycin 300mg by mouth 1 tablet at 8am, 12pm and 8pm for 7 days. Disp # 21 (twenty one) Discharge Exam - Head Exam Head Exam: ATRAUMATIC, NORMOCEPHALIC - Eye Exam Eye Exam: EOMI - ENT Exam ENT Exam: Mucous Membranes Moist - Respiratory Exam Respiratory Exam: Clear to PA & Lateral. absent: Rales, Rhonchi, Wheezes, Respiratory Distress, Stridor - Cardiovascular Exam Cardiovascular Exam: REGULAR RHYTHM, +S1, +S2. absent: Gallop, Rubs, Systolic Murmur - GI/Abdominal Exam GI & Abdominal Exam: Normal Bowel Sounds, Soft. absent: Distended, Firm, Guarding, Hernia, Rigid, Tenderness - Extremities Exam Additional comments: no calf tenderness, no pedal edema. Left hand: significantly improved, no active drainage. erythema, edema and tenderness decreased from prior. no active discharge. Able to make a fist, good ROM of left thumb with no pain or limitation of motion. Capillary refill <2seconds. Good radial and ulnar pulses Left axilla: no lymphadenopathy. - Neurological Exam Neurological exam: Alert, Oriented x3 - Psychiatric Exam Psychiatric exam: Normal Affect, Normal Mood Discharge Plan - Discharge Medications Prescriptions: RX: Clindamycin [Cleocin] 300 mg PO TID 7 Days #21 cap - Follow Up Plan Condition: STABLE Disposition: HOME/ ROUTINE Instructions: Clindamycin (Systemic), Cellulitis (Skin Infection), Adult (DC) Additional Instructions: Please follow up with [address] at [phone] in 1 to 2 weeks. For your hand, we recommend you follow up with the wound clinic in [place] at [address] [place] [address] by calling [phone]. Keep area clean and dry. You have been given instructions on how to clean the area and change dressings daily. You have been given a prescription for antibiotics. If you experience worsening of pain or swelling, along with fevers and chills, please seek medical care at the clinic or the Emergency Department. Prescriptions: Clindamycin 300mg by mouth 1 tablet at 8am, 12pm and 8pm for 7 days. Disp # 21 (twenty one) Referrals: Brunilda Jones MD [Staff Provider] - <Fredi Azevedo - Last Filed: 05/18/18 19:02> Provider - Provider Date of Admission: 05/12/18 17:19 Attending physician: Fredi Azevedo DO Hospital Course - Lab Results Lab Results: Micro Results 05/12/18 15:53 Blood Blood Culture - Final NO GROWTH AFTER 5 DAYS 05/12/18 15:53 Blood Gram Stain - Final TEST NOT PERFORMED 05/12/18 15:53 Blood Blood Culture - Final NO GROWTH AFTER 5 DAYS 05/12/18 15:53 Blood Gram Stain - Final TEST NOT PERFORMED 05/12/18 15:51 Hand - Left Gram Stain - Final 05/12/18 15:51 Hand - Left Wound Culture - Final Methicillin Resistant S Aureus Most Recent Lab Values WBC 8.0 K/uL (4.8-10.8) 05/18/18 06:18 RBC 5.02 Mil/uL (4.40-5.90) 05/18/18 06:18 Hgb 15.4 g/dL (12.0-18.0) 05/18/18 06:18 Hct 44.5 % (35.0-51.0) 05/18/18 06:18 MCV 88.5 fL (80.0-94.0) 05/18/18 06:18 MCH 30.6 pg (27.0-31.0) 05/18/18 06:18 MCHC 34.5 g/dL (33.0-37.0) 05/18/18 06:18 RDW 12.6 % (11.5-14.5) 05/18/18 06:18 Plt Count 317 K/uL (130-400) 05/18/18 06:18 MPV 7.8 fL (7.2-11.7) 05/18/18 06:18 Neut % (Auto) 59.6 % (50.0-75.0) 05/18/18 06:18 Lymph % (Auto) 26.0 % (20.0-40.0) 05/18/18 06:18 Montgomery % (Auto) 8.7 % (0.0-10.0) 05/18/18 06:18 Eos % (Auto) 4.3 % (0.0-4.0) H 05/18/18 06:18 Baso % (Auto) 1.4 % (0.0-2.0) 05/18/18 06:18 Neut # (Auto) 4.8 K/uL (1.8-7.0) 05/18/18 06:18 Lymph # (Auto) 2.1 K/uL (1.0-4.3) 05/18/18 06:18 Montgomery # (Auto) 0.7 K/uL (0.0-0.8) 05/18/18 06:18 Eos # (Auto) 0.3 K/uL (0.0-0.7) 05/18/18 06:18 Baso # (Auto) 0.1 K/uL (0.0-0.2) 05/18/18 06:18 PT 12.7 SECONDS (9.7-12.2) H 05/12/18 16:43 INR 1.2 05/12/18 16:43 APTT 33 SECONDS (21-34) 05/12/18 16:43 Sodium 138 mmol/L (132-148) 05/18/18 06:18 Potassium 4.2 mmol/L (3.6-5.2) 05/18/18 06:18 Chloride 100 mmol/L (98-107) 05/18/18 06:18 Carbon Dioxide 27 mmol/L (22-30) 05/18/18 06:18 Anion Gap 15 (10-20) 05/18/18 06:18 BUN 16 mg/dL (9-20) 05/18/18 06:18 Creatinine 1.1 mg/dL (0.8-1.5) 05/18/18 06:18 Est GFR ( Amer) > 60 05/18/18 06:18 Est GFR (Non-Af Amer) > 60 05/18/18 06:18 Random Glucose 94 mg/dL (75-110) 05/18/18 06:18 Hemoglobin A1c 5.6 % (4.2-6.5) 05/12/18 20:03 Calcium 9.0 mg/dl (8.6-10.4) 05/18/18 06:18 Phosphorus 4.3 mg/dL (2.5-4.5) 05/18/18 06:18 Magnesium 2.2 mg/dL (1.6-2.3) 05/18/18 06:18 Total Bilirubin 0.5 mg/dL (0.2-1.3) 05/18/18 06:18 AST 26 U/L (17-59) 05/18/18 06:18 ALT 28 U/L (21-72) 05/18/18 06:18 Alkaline Phosphatase 73 U/L (38-126) 05/18/18 06:18 Total Protein 7.3 g/dL (6.3-8.3) 05/18/18 06:18 Albumin 4.0 g/dL (3.5-5.0) 05/18/18 06:18 Globulin 3.3 gm/dL (2.2-3.9) 05/18/18 06:18 Albumin/Globulin Ratio 1.2 (1.0-2.1) 05/18/18 06:18 Urine Color Straw (YELLOW) 05/12/18 15:51 Urine Clarity Clear (Clear) 05/12/18 15:51 Urine pH 6.0 (5.0-8.0) 05/12/18 15:51 Ur Specific [place] 1.008 (1.003-1.030) 11/10/18 15:51 Urine Protein Negative mg/dL (NEGATIVE) 05/12/18 15:51 Urine Glucose (UA) Normal mg/dL (Normal) 05/12/18 15:51 Urine Ketones Negative mg/dL (NEGATIVE) 05/12/18 15:51 Urine Blood Negative (NEGATIVE) 05/12/18 15:51 Urine Nitrate Negative (NEGATIVE) 05/12/18 15:51 Urine Bilirubin Negative (NEGATIVE) 05/12/18 15:51 Urine Urobilinogen Normal mg/dL (0.2-1.0) 05/12/18 15:51 Ur Leukocyte Esterase Neg Miguel/uL (Negative) 05/12/18 15:51 Urine WBC (Auto) 1 /hpf (0-5) 05/12/18 15:51 Urine RBC (Auto) 1 /hpf (0-3) 05/12/18 15:51 Vancomycin Trough 13.1 ug/mL (5.0-10.0) H 05/17/18 11:10 HIV 1&2 Antibody Screen Negative (NEGATIVE) 05/12/18 20:03 Attending/Attestation - Attestation I have personally seen and examined this patient.: Yes I have fully participated in the care of the patient.: Yes I have reviewed all pertinent clinical information, including history, physical exam and plan: Yes Notes (Text): 05/18/18 19:02 Medical attending: Patient was seen and examined with the medical residents. He was having hemodialysis when we saw him. I reviewed the above note by emergency medicine medical director and agree As mentioned previously the patient was able to actively move his thumb without any pain. We unwrapped the dressing over his hand and reexamined the area the ascending his thumb he looked well. It was not actively bleeding, it was dry, there was no oozing or pus noted. He could move his thumb and all motions without any pain he reported it felt normal He'll need to continue with oral antibiotics for several more days. We also gave him a basin some supplies of 4 x 4's, Kerlix wraps, sterile tape, as well as sterile saline. We advised the patient that even though he was much better now that ideally he needs to follow-up at [place] [facility] Fredi Azevedo
== END 2018-05-18 18:35 | disposition home or self-care (01) | DRG 383 ==
LOC: C.ER 13:48 → C.3T 17:19
PROVIDERS: ADMIT Hospitalist; ATTEND Hospitalist
DX: L98.0 Pyogenic granuloma (principal); L03.114 Cellulitis of left upper limb; L02.512 Cutaneous abscess of left hand; N18.9 Chronic kidney disease, unspecified; L03.012 Cellulitis of left finger; B95.62 Methicillin resistant Staphylococcus aureus infection as the cause of diseases classified elsewhere